=== PATIENT | male | born 1950 | race Caucasian/White ===

== ENCOUNTER 2018-09-23 09:00 | Outpatient (RCR) | payer MEDICARE, SELFPAY ==
--- NOTE | 2018-04-16 13:58 | PT.OIE ---
Current Diagnoses Pain in left hip (04/15/18) Provider Visit Care Team Role Provider Type Leticia Arias MD Attending Provider Non-Staff Family Provider Primary Care Provider Specialty: Medical Address: [address] [place] [address], [id number] Email: Physical Therapy Initial Evaluation PT-OP-A Visit Information Start: 04/15/18 13:17 Freq: Status: Active Protocol: Document 04/15/18 13:20 EA (Rec: 04/15/18 13:42 EA [id number]) Out-Patient Physical Therapy Visit Information Visit Information Visit Type Initial Evaluation Visit Start Time 08:15 Visit Stop Time 08:50 Total Visit Minutes 35 Visit Number 1 Evaluation Information Evaluation Date 04/15/18 PT-OP-B Current Condition Start: 04/15/18 13:17 Freq: Status: Active Protocol: Document 04/15/18 13:20 EA (Rec: 04/15/18 13:42 EA [id number]) Current Condition History of Current Condition Onset Date 5 years ago Current Complaints Left hip pain with stiffness History of Current Condition Present condition started 5 year ago which has been treated 1 year ago with good results but not fully recovered. Pt reports that he does not want to undergo surgery though he was diagnosed with hip OA few years ago; states c/c is difficulty with tying shoes in seated position and difficulty of getting up from the floor when kneeling as he feels joint stiffness always stopped him. Patient denies hip injury in the past or hip surgery. Patient went to his doctor weeks ago and was then referred to PT for further evaluation. Radiographs taken months ago which according to patient that the left hip joint has significant OA. Prior Treatments and Tests Formal PT year ago with same condition Chiropractor ongoing for back problem Future Testing and Treatments Planned None at this time. Treatment Goals Patient/Caregiver Goals 1. be able to bend and tie shoe laces and put the sucks 2. decrease left hip discomfort and stiffness Prior Functional Status Baseline Function- ADL's Independent Baseline Function- Mobility Independent Baseline Function- Recreation/Hobbies Fishing, crabbing, camping with mild difficulty Current Functional Impairments (Reported) Functional Limitations- ADL's Limitation with bending and left foot shoe donning Functional Limitations- Mobility/Gait Indep with no mobility support with moderate limp. Functional Limitations- Recreation/ Fishing, crabbing, camping Hobbies with mild difficulty Personal Factors Other Personal Factors That May Effect Chronicity of the condition Therapy/Recovery PT-OP-C Subjective Start: 04/15/18 13:17 Freq: Status: Active Protocol: Document 04/15/18 13:20 EA (Rec: 04/15/18 13:42 EA [id number]) OP-PT Subjective Patient Comments Patient Comments Patient reports difficulty of getting up from the floor and donning shoes due to left hip stiffness and pain. Patient Reported Progress Improving Patient Questionnaires Lower Extremity Functional Scale LEFS Score 40 LEFS Impairment 40 to 59% Impaired (Score 32- 47) PT-OP-F Manual Assessment Start: 04/15/18 13:17 Freq: Status: Active Protocol: Document 04/15/18 13:20 EA (Rec: 04/16/18 12:43 EA [id number]) Manual Assessments Soft Tissue Assessment Soft Tissue Mobility Assessment Hypomobile left hip joint Joint Mobility Assessment Joint Mobility Assessment LOM due to possible soft tissuue tightness on ant hip region PT-OP-G Mobility & Gait Start: 04/15/18 13:17 Freq: Status: Active Protocol: Document 04/15/18 13:20 EA (Rec: 04/15/18 13:42 EA [id number]) OP Gait Assessment Gait Deviations General Gait Pattern Antalgic Stair Climbing Evaluation Comments Stair Climbing Comments Decrease left foot stance time . PT-OP-J Posture/Palpation/Skin Start: 04/15/18 13:17 Freq: Status: Active Protocol: Document 04/15/18 13:20 EA (Rec: 04/15/18 13:42 EA [id number]) Palpation Assessment Location One Palpation Location Right ant hip Palpation Findings Soft Tissue Tightness PT-OP-K Range of Motion Start: 04/15/18 13:17 Freq: Status: Active Protocol: Document 04/15/18 13:20 EA (Rec: 04/15/18 13:42 EA [id number]) Hip Goniometric Range of Motion Hip Measured in Degrees Left Active Testing Position Supine Flexion w/Knee Flexed 80 Extension 5 Abduction 15 Internal Rotation 15 External Rotation 35 Right Active Testing Position Supine Flexion w/Knee Flexed 90 Extension 10 Abduction 25 Internal Rotation 25 External Rotation 40 PT-OP-L Special Tests Start: 04/15/18 13:17 Freq: Status: Active Protocol: Document 04/15/18 13:20 EA (Rec: 04/15/18 13:42 EA [id number]) Special Tests Hip Special Tests Piriformis Test Results - Scour Test Test Results NOT SENSITIVE Lisa's Test Test Results + PAKO Test Results + PT-OP-M Strength Start: 04/15/18 13:17 Freq: Status: Active Protocol: Document 04/15/18 13:20 EA (Rec: 04/15/18 13:42 EA [id number]) Hip Strength Hip Manual Muscle Testing Left Flexion (L2) 5 Normal Extension (S1) 5 Normal Abduction 4- Good- External Rotation 4+ Good+ Internal Rotation 4- Good- Right Flexion (L2) 5 Normal Extension (S1) 5 Normal Abduction 5 Normal Adduction 5 Normal External Rotation 4+ Good+ Internal Rotation 5 Normal PT-OP-Q Treatments Start: 04/15/18 13:17 Freq: Status: Active Protocol: Document 04/15/18 13:20 EA (Rec: 04/15/18 13:42 EA [id number]) Self-Care/Home Management Treatment Education Patient Education Body Mechanics Home Exercise Program Joint Protection Pain Management PT-OP-T Assessment and Plan Start: 04/15/18 13:17 Freq: Status: Active Protocol: Document 04/15/18 13:20 EA (Rec: 04/15/18 13:42 EA [id number]) Physical Therapy Assessment Rehab Potential Rehabilitation Potential Fair Evaluation Complexity Number of Personal Factors/Comorbidities 1-2 Number of Body Systems Impaired 1-2 Clinical Presentation at Evaluation Stable Impairments Impairments Functional Activities Functional Mobility Gait Pain ROM Soft Tissue Mobility Strength Goals Four Impairment Subjective pain complaint of 3 /10 PS Fdc Goal (LTG) Patient will reports left hip pain of 1/10 PS LTG Duration 4 wks Three Impairment LEFS score of 40/80 Side Laster Goal (LTG) Patient will have LEFS score of 65/80 LTG Duration 4 wks Two Impairment Min antalgic gait with increased left foot toe out Side Laster Goal (LTG) Patient will demontrate normal gait LTG Duration 4 wks. One Impairment Decreased Left HIP flexion ROM (0-80 deg) Side Laster Goal (LTG) Patient will increase Left Hip active flexion to 90 deg to be able to tie shoes in bent position LTG Duration 4 wks Assessment Summary Assessment Pleasant 67 y/o M patient who demonstrates left HIP LOM with minimal weakness due to tightness and pain. Special test reveals positive with joint condition such as OA which consistent with X-ray findings. Due to hip pain and tightness with LOM, patient functional ability is limited to some extent. Patient is a fair candidate for PT at this time considering the BW and previous rehab. Patient will benefit with skilled PT to focused mainly of increasing hip ROM and decreasing pain and discomfort. Physical Therapy Plan Frequency and Duration Frequency of Treatment 2x/Week Plan of Care Start Date 04/15/18 Plan of Care End Date 06/10/18 Therapeutic Interventions Therapeutic Interventions Aquatic Therapy Gait Training Home Exercise Program Joint Mobilizations Manual Therapy Patient/Caregiver Education Self-Care/Home Management Soft Tissue Mobilization Therapeutic Activities Therapeutic Exercises Modalities Cold Pack/Ice Massage Hot Packs Ultrasound Next Visit Focus/Plan Next Note Type Treatment Note Next Visit Plan 1. Warm-cardio 5-15 mins 2. Flexibility exercises 3. HEP
--- NOTE | 2018-04-16 13:59 | PT.OPPOC ---
Current Diagnoses Pain in left hip (04/15/18) Provider Visit Care Team Role Provider Type Leticia Arias MD Attending Provider Non-Staff Family Provider Primary Care Provider Specialty: Medical Address: [address] [place] [address], [phone] Email: Plan Of Care PT-OP-T Assessment and Plan Start: 04/15/18 13:17 Freq: Status: Active Protocol: Document 04/15/18 13:20 EA (Rec: 04/15/18 13:42 EA [id number]) Physical Therapy Assessment Rehab Potential Rehabilitation Potential Fair Evaluation Complexity Number of Personal Factors/Comorbidities 1-2 Number of Body Systems Impaired 1-2 Clinical Presentation at Evaluation Stable Impairments Impairments Functional Activities Functional Mobility Gait Pain ROM Soft Tissue Mobility Strength Goals Four Impairment Subjective pain complaint of 3 /10 PS Retirement Goal (LTG) Patient will reports left hip pain of 1/10 PS LTG Duration 4 wks Three Impairment LEFS score of 40/80 Retirement Goal (LTG) Patient will have LEFS score of 65/80 LTG Duration 4 wks Two Impairment Min antalgic gait with increased left foot toe out Retirement Goal (LTG) Patient will demonstrate normal gait LTG Duration 4 wks. One Impairment Decreased Left HIP flexion ROM (0-80 deg) Auto Parts Clerk Goal (LTG) Patient will increase Left Hip active flexion to 90 deg to be able to tie shoes in bent position LTG Duration 4 wks Assessment Summary Assessment Pleasant 67 y/o M patient who demonstrates left HIP LOM with minimal weakness due to tightness and pain. Special test reveals positive with joint condition such as OA which consistent with X-ray findings. Due to hip pain and tightness with LOM, patient functional ability is limited to some extent. Patient is a fair candidate for PT at this time considering the BW and previous rehab. Patient will benefit with skilled PT to focused mainly of increasing hip ROM and decreasing pain and discomfort. Physical Therapy Plan Frequency and Duration Frequency of Treatment 2x/Week Plan of Care Start Date 04/15/18 Plan of Care End Date 06/10/18 Therapeutic Interventions Therapeutic Interventions Aquatic Therapy Gait Training Home Exercise Program Joint Mobilizations Manual Therapy Patient/Caregiver Education Self-Care/Home Management Soft Tissue Mobilization Therapeutic Activities Therapeutic Exercises Modalities Cold Pack/Ice Massage Hot Packs Ultrasound Next Visit Focus/Plan Next Note Type Treatment Note Next Visit Plan 1. Warm-cardio 5-15 mins 2. Flexibility exercises 3. HEP Plan of Care Dates Plan of Care Start Date 04/15/18 Plan of Care End Date 06/10/18 Please Sign and Return: I have reviewed this Plan of Care and certify that the skilled therapy services above are required to meet the patient?s needs. Physician Signature Date Printed Name and Credentials Clinical Instructor Signature Printed Name and Credentials
--- NOTE | 2018-04-17 12:16 | PT.OTN ---
Current Diagnoses Pain in left hip (04/17/18) Physical Therapy Treatment Note PT-OP-A Visit Information Start: 04/15/18 13:17 Freq: Status: Active Protocol: Document 04/17/18 08:55 EA (Rec: 04/17/18 08:56 EA [id number]) Out-Patient Physical Therapy Visit Information Visit Information Visit Type Treatment Note Visit Start Time 07:30 Visit Stop Time 08:15 Total Visit Minutes 45 Visit Number 2 Number of SAAS ARCHITECT Visits 0 PT-OP-B Current Condition Start: 04/15/18 13:17 Freq: Status: Active Protocol: Document 04/15/18 13:20 EA (Rec: 04/15/18 13:42 EA [id number]) Current Condition History of Current Condition Onset Date 5 years ago Current Complaints Left hip pain with stiffness History of Current Condition Present condition started 5 year ago which has been treated 1 year ago with good results but not fully recovered. Pt reports that he does not want to undergo surgery though he was diagnosed with hip OA few years ago; states c/c is difficulty with tieng shoes in seated position and difficulty of getting up from the floor when kneeling as he feels joint stiffness always stopped him. Patient denies hip injury in the past or hip rsurgery. Patient went to his doctor weeks ago and was then referred to PT for further evaluation. Radiographs taken months ago which according to patient that the left hip joint has significant OA. Prior Treatments and Tests Formal PT year ago with same condition Chiropractor ongoing for back problem Future Testing and Treatments Planned None at this time. Treatment Goals Patient/Caregiver Goals 1. be able to bend and tie shoe laces and put the sucks 2. decrease left hip discomfort and stiffness Prior Functional Status Baseline Function- ADL's Independent Baseline Function- Mobility Independent Baseline Function- Recreation/Hobbies Fishing, crabbing, camping with mild difficulty Current Functional Impairments (Reported) Functional Limitations- ADL's Limitation with bending and left foot shoe donning Functional Limitations- Mobility/Gait Indep with no mobility support with moderate limp. Functional Limitations- Recreation/ Fishing, crabbing, camping Hobbies with mild difficulty Personal Factors Other Personal Factors That May Effect Chronicity of the condition Therapy/Recovery PT-OP-C Subjective Start: 04/15/18 13:17 Freq: Status: Active Protocol: Document 04/17/18 07:30 EA (Rec: 04/17/18 08:17 EA [id number]) OP-PT Subjective Patient Comments Patient Comments Patient reports hip anmd low back crepitus occurs mostly when doing his HEP. Patient Reported Progress Same PT-OP-F Manual Assessment Start: 04/15/18 13:17 Freq: Status: Active Protocol: Document 04/15/18 13:20 EA (Rec: 04/16/18 12:43 EA [id number]) Manual Assessments Soft Tissue Assessment Soft Tissue Mobility Assessment Hypomobile left hip joint Joint Mobility Assessment Joint Mobility Assessment LOM due to possible soft tissuue tightness on ant hip region PT-OP-G Mobility & Gait Start: 04/15/18 13:17 Freq: Status: Active Protocol: Document 04/15/18 13:20 EA (Rec: 04/15/18 13:42 EA [id number]) OP Gait Assessment Gait Deviations General Gait Pattern Antalgic Stair Climbing Evaluation Comments Stair Climbing Comments Decrease left foot stance time . PT-OP-J Posture/Palpation/Skin Start: 04/15/18 13:17 Freq: Status: Active Protocol: Document 04/15/18 13:20 EA (Rec: 04/15/18 13:42 EA [id number]) Palpation Assessment Location One Palpation Location Right ant hip Palpation Findings Soft Tissue Tightness PT-OP-K Range of Motion Start: 04/15/18 13:17 Freq: Status: Active Protocol: Document 04/15/18 13:20 EA (Rec: 04/15/18 13:42 EA [id number]) Hip Goniometric Range of Motion Hip Measured in Degrees Left Active Testing Position Supine Flexion w/Knee Flexed 80 Extension 5 Abduction 15 Internal Rotation 15 External Rotation 35 Right Active Testing Position Supine Flexion w/Knee Flexed 90 Extension 10 Abduction 25 Internal Rotation 25 External Rotation 40 PT-OP-L Special Tests Start: 04/15/18 13:17 Freq: Status: Active Protocol: Document 04/15/18 13:20 EA (Rec: 04/15/18 13:42 EA [id number]) Special Tests Hip Special Tests Piriformis Test Results - Scour Test Test Results NOT SENSITIVE Lisa's Test Test Results + PAKO Test Results + PT-OP-M Strength Start: 04/15/18 13:17 Freq: Status: Active Protocol: Document 04/15/18 13:20 EA (Rec: 04/15/18 13:42 EA [id number]) Hip Strength Hip Manual Muscle Testing Left Flexion (L2) 5 Normal Extension (S1) 5 Normal Abduction 4- Good- External Rotation 4+ Good+ Internal Rotation 4- Good- Right Flexion (L2) 5 Normal Extension (S1) 5 Normal Abduction 5 Normal Adduction 5 Normal External Rotation 4+ Good+ Internal Rotation 5 Normal PT-OP-Q Treatments Start: 04/15/18 13:17 Freq: Status: Active Protocol: Document 04/17/18 07:30 EA (Rec: 04/17/18 08:17 EA [id number]) Cardio Equipment Elliptical Duration (Minutes) 7 Resistance 1-6 Gym Equipment Shuttle Recovery Unilateral Squats Details full hip flexion range or as tolerated Resistance 75-100 # Shuttle Recovery Platform Stable Reps/Time x 15 x 2sets Therapeutic Exercises Supine Exercises 3 Supine Exercise Name hip abd/add AROM Side left Reps/Minutes x15 reps x 2 2 Supine Exercise Name figure of 4 stretch Side left Reps/Minutes x30sh x 2 1 Supine Exercise Name Hamstring stertch Side left Reps/Minutes x 30SH x 2 Standing Exercises 2 Standing Exercise Name SLS Side left Reps/Minutes x10 SH x 5 1 Standing Exercise Name Side step squat Side bilateral Equipment Used GTB Reps/Minutes x 2 lines Comments cues knee s not pass toes, not to use arm to pull up Other Exercises 1 Other Exercise Name Half knee ling stretch Side bilateral Comments Rails to hol and foam to knee Manual Therapy Treatment Joint Mobilizations 1 Joint Hip Direction post/inf Grade III Body Position Supine PT-OP-T Assessment and Plan Start: 04/15/18 13:17 Freq: Status: Active Protocol: Document 04/17/18 07:30 EA (Rec: 04/17/18 08:17 EA [id number]) Physical Therapy Assessment Assessment Summary Assessment Patient were instructed with HEP and showed good understanding. Patient tolerated treatment well. Physical Therapy Plan Next Visit Focus/Plan Next Note Type Treatment Note Next Visit Plan Cont with current plan.
--- NOTE | 2018-04-24 09:40 | PT.OTN ---
Current Diagnoses Pain in left hip (04/24/18) Physical Therapy Treatment Note PT-OP-A Visit Information Start: 04/15/18 13:17 Freq: Status: Active Protocol: Document 04/24/18 07:32 EA (Rec: 04/24/18 08:20 EA [id number]) Out-Patient Physical Therapy Visit Information Visit Information Visit Type Treatment Note Visit Start Time 07:30 Visit Stop Time 08:15 Total Visit Minutes 45 Visit Number 3 Number of ADVANCED DEVELOPER Visits 0 PT-OP-B Current Condition Start: 04/15/18 13:17 Freq: Status: Active Protocol: Document 04/15/18 13:20 EA (Rec: 04/15/18 13:42 EA [id number]) Current Condition History of Current Condition Onset Date 5 years ago Current Complaints Left hip pain with stiffness History of Current Condition Present condition started 5 year ago which has been treated 1 year ago with good results but not fully recovered. Pt reports that he does not want to undergo surgery though he was diagnosed with hip OA few years ago; states c/c is difficulty with tieng shoes in seated position and difficulty of getting up from the floor when kneeling as he feels joint stiffness always stopped him. Patient denies hip injury in the past or hip rsurgery. Patient went to his doctor weeks ago and was then referred to PT for further evaluation. Radiographs taken months ago which according to patient that the left hip joint has significant OA. Prior Treatments and Tests Formal PT year ago with same condition Chiropractor ongoing for back problem Future Testing and Treatments Planned None at this time. Treatment Goals Patient/Caregiver Goals 1. be able to bend and tie shoe laces and put the sucks 2. decrease left hip discomfort and stiffness Prior Functional Status Baseline Function- ADL's Independent Baseline Function- Mobility Independent Baseline Function- Recreation/Hobbies Fishing, crabbing, camping with mild difficulty Current Functional Impairments (Reported) Functional Limitations- ADL's Limitation with bending and left foot shoe donning Functional Limitations- Mobility/Gait Indep with no mobility support with moderate limp. Functional Limitations- Recreation/ Fishing, crabbing, camping Hobbies with mild difficulty Personal Factors Other Personal Factors That May Effect Chronicity of the condition Therapy/Recovery PT-OP-C Subjective Start: 04/15/18 13:17 Freq: Status: Active Protocol: Document 04/24/18 07:32 EA (Rec: 04/24/18 08:20 EA [id number]) OP-PT Subjective Patient Comments Patient Comments Patient reports compliant with recommended HEP; states he would be away next month for 2 weeks so he would like to learn more about gym exercises . PT-OP-F Manual Assessment Start: 04/15/18 13:17 Freq: Status: Active Protocol: Document 04/15/18 13:20 EA (Rec: 04/16/18 12:43 EA [id number]) Manual Assessments Soft Tissue Assessment Soft Tissue Mobility Assessment Hypomobile left hip joint Joint Mobility Assessment Joint Mobility Assessment LOM due to possible soft tissuue tightness on ant hip region PT-OP-G Mobility & Gait Start: 04/15/18 13:17 Freq: Status: Active Protocol: Document 04/15/18 13:20 EA (Rec: 04/15/18 13:42 EA [id number]) OP Gait Assessment Gait Deviations General Gait Pattern Antalgic Stair Climbing Evaluation Comments Stair Climbing Comments Decrease left foot stance time . PT-OP-J Posture/Palpation/Skin Start: 04/15/18 13:17 Freq: Status: Active Protocol: Document 04/15/18 13:20 EA (Rec: 04/15/18 13:42 EA [id number]) Palpation Assessment Location One Palpation Location Right ant hip Palpation Findings Soft Tissue Tightness PT-OP-K Range of Motion Start: 04/15/18 13:17 Freq: Status: Active Protocol: Document 04/15/18 13:20 EA (Rec: 04/15/18 13:42 EA [id number]) Hip Goniometric Range of Motion Hip Measured in Degrees Left Active Testing Position Supine Flexion w/Knee Flexed 80 Extension 5 Abduction 15 Internal Rotation 15 External Rotation 35 Right Active Testing Position Supine Flexion w/Knee Flexed 90 Extension 10 Abduction 25 Internal Rotation 25 External Rotation 40 PT-OP-L Special Tests Start: 04/15/18 13:17 Freq: Status: Active Protocol: Document 04/15/18 13:20 EA (Rec: 04/15/18 13:42 EA [id number]) Special Tests Hip Special Tests Piriformis Test Results - Scour Test Test Results NOT SENSITIVE Lisa's Test Test Results + PAKO Test Results + PT-OP-M Strength Start: 04/15/18 13:17 Freq: Status: Active Protocol: Document 04/15/18 13:20 EA (Rec: 04/15/18 13:42 EA [id number]) Hip Strength Hip Manual Muscle Testing Left Flexion (L2) 5 Normal Extension (S1) 5 Normal Abduction 4- Good- External Rotation 4+ Good+ Internal Rotation 4- Good- Right Flexion (L2) 5 Normal Extension (S1) 5 Normal Abduction 5 Normal Adduction 5 Normal External Rotation 4+ Good+ Internal Rotation 5 Normal PT-OP-Q Treatments Start: 04/15/18 13:17 Freq: Status: Active Protocol: Document 04/24/18 07:32 EA (Rec: 04/24/18 08:20 EA [id number]) Cardio Equipment Elliptical Duration (Minutes) 7 Resistance 1-6 Gym Equipment Cable Column (Body Solid) Leg Extension Details 7 plates Reps/Time x15 reps Shuttle Recovery Unilateral Squats Details full hip flexion range or as tolerated Resistance 100 -150# Shuttle Recovery Platform Stable Reps/Time x 15 x 2sets Therapeutic Exercises Supine Exercises 4 Supine Exercise Name Bridge with T-ball Reps/Minutes x 10 reps x 2 SH up 3 Supine Exercise Name hip abd/add AROM Side left Reps/Minutes x15 reps x 2 2 Supine Exercise Name figure of 4 stretch Side left Reps/Minutes x30sh x 2 1 Supine Exercise Name Hamstring stertch Side left Reps/Minutes x 30SH x 2 Standing Exercises 2 Standing Exercise Name SLS Side left Reps/Minutes x10 SH x 5 1 Standing Exercise Name Side step squat Side bilateral Equipment Used GTB Reps/Minutes x 2 lines Comments cues knee s not pass toes, not to use arm to pull up Other Exercises 1 Other Exercise Name Half knee ling stretch Side bilateral Comments Rails to hol and foam to knee Manual Therapy Treatment Joint Mobilizations 1 Joint Hip Direction post/inf Grade III Body Position Supine PT-OP-T Assessment and Plan Start: 04/15/18 13:17 Freq: Status: Active Protocol: Document 04/24/18 07:32 EA (Rec: 04/24/18 08:20 EA [id number]) Physical Therapy Assessment Assessment Summary Assessment Tolerated treatment well. Physical Therapy Plan Next Visit Focus/Plan Next Note Type Treatment Note Next Visit Plan Cont with current plan
--- NOTE | 2018-04-28 12:14 | PT.OTN ---
Current Diagnoses Pain in left hip (04/28/18) Physical Therapy Treatment Note PT-OP-A Visit Information Start: 04/15/18 13:17 Freq: Status: Active Protocol: Document 04/28/18 09:01 EA (Rec: 04/28/18 09:51 EA [id number]) Out-Patient Physical Therapy Visit Information Visit Information Visit Type Treatment Note Visit Start Time 09:00 Visit Stop Time 09:45 Total Visit Minutes 45 Visit Number 4 Number of MEDICAL EDUCATION SPECIALIST Visits 0 PT-OP-B Current Condition Start: 04/15/18 13:17 Freq: Status: Active Protocol: Document 04/15/18 13:20 EA (Rec: 04/15/18 13:42 EA [id number]) Current Condition History of Current Condition Onset Date 5 years ago Current Complaints Left hip pain with stiffness History of Current Condition Present condition started 5 year ago which has been treated 1 year ago with good results but not fully recovered. Pt reports that he does not want to undergo surgery though he was diagnosed with hip OA few years ago; states c/c is difficulty with tieng shoes in seated position and difficulty of getting up from the floor when kneeling as he feels joint stiffness always stopped him. Patient denies hip injury in the past or hip rsurgery. Patient went to his doctor weeks ago and was then referred to PT for further evaluation. Radiographs taken months ago which according to patient that the left hip joint has significant OA. Prior Treatments and Tests Formal PT year ago with same condition Chiropractor ongoing for back problem Future Testing and Treatments Planned None at this time. Treatment Goals Patient/Caregiver Goals 1. be able to bend and tie shoe laces and put the sucks 2. decrease left hip discomfort and stiffness Prior Functional Status Baseline Function- ADL's Independent Baseline Function- Mobility Independent Baseline Function- Recreation/Hobbies Fishing, crabbing, camping with mild difficulty Current Functional Impairments (Reported) Functional Limitations- ADL's Limitation with bending and left foot shoe donning Functional Limitations- Mobility/Gait Indep with no mobility support with moderate limp. Functional Limitations- Recreation/ Fishing, crabbing, camping Hobbies with mild difficulty Personal Factors Other Personal Factors That May Effect Chronicity of the condition Therapy/Recovery PT-OP-C Subjective Start: 04/15/18 13:17 Freq: Status: Active Protocol: Document 04/24/18 07:32 EA (Rec: 04/24/18 08:20 EA [id number]) OP-PT Subjective Patient Comments Patient Comments Patient reports compliant with recommended HEP; states he would be away next month for 2 weeks so he would like to learn more about gym exercises . PT-OP-F Manual Assessment Start: 04/15/18 13:17 Freq: Status: Active Protocol: Document 04/15/18 13:20 EA (Rec: 04/16/18 12:43 EA [id number]) Manual Assessments Soft Tissue Assessment Soft Tissue Mobility Assessment Hypomobile left hip joint Joint Mobility Assessment Joint Mobility Assessment LOM due to possible soft tissuue tightness on ant hip region PT-OP-G Mobility & Gait Start: 04/15/18 13:17 Freq: Status: Active Protocol: Document 04/15/18 13:20 EA (Rec: 04/15/18 13:42 EA [id number]) OP Gait Assessment Gait Deviations General Gait Pattern Antalgic Stair Climbing Evaluation Comments Stair Climbing Comments Decrease left foot stance time . PT-OP-J Posture/Palpation/Skin Start: 04/15/18 13:17 Freq: Status: Active Protocol: Document 04/15/18 13:20 EA (Rec: 04/15/18 13:42 EA [id number]) Palpation Assessment Location One Palpation Location Right ant hip Palpation Findings Soft Tissue Tightness PT-OP-K Range of Motion Start: 04/15/18 13:17 Freq: Status: Active Protocol: Document 04/15/18 13:20 EA (Rec: 04/15/18 13:42 EA [id number]) Hip Goniometric Range of Motion Hip Measured in Degrees Left Active Testing Position Supine Flexion w/Knee Flexed 80 Extension 5 Abduction 15 Internal Rotation 15 External Rotation 35 Right Active Testing Position Supine Flexion w/Knee Flexed 90 Extension 10 Abduction 25 Internal Rotation 25 External Rotation 40 PT-OP-L Special Tests Start: 04/15/18 13:17 Freq: Status: Active Protocol: Document 04/15/18 13:20 EA (Rec: 04/15/18 13:42 EA [id number]) Special Tests Hip Special Tests Piriformis Test Results - Scour Test Test Results NOT SENSITIVE Lisa's Test Test Results + PAKO Test Results + PT-OP-M Strength Start: 04/15/18 13:17 Freq: Status: Active Protocol: Document 04/15/18 13:20 EA (Rec: 04/15/18 13:42 EA [id number]) Hip Strength Hip Manual Muscle Testing Left Flexion (L2) 5 Normal Extension (S1) 5 Normal Abduction 4- Good- External Rotation 4+ Good+ Internal Rotation 4- Good- Right Flexion (L2) 5 Normal Extension (S1) 5 Normal Abduction 5 Normal Adduction 5 Normal External Rotation 4+ Good+ Internal Rotation 5 Normal PT-OP-Q Treatments Start: 04/15/18 13:17 Freq: Status: Active Protocol: Document 04/28/18 09:01 EA (Rec: 04/28/18 09:51 EA [id number]) Cardio Equipment Elliptical Duration (Minutes) 7 Resistance 1-6 Gym Equipment Cable Column (Body Solid) Leg Extension Details 7 plates Reps/Time x15 reps Therapeutic Exercises Supine Exercises 4 Supine Exercise Name Bridge with T-ball Reps/Minutes x 10 reps x 2 SH up 3 Supine Exercise Name hip abd/add AROM Side left Reps/Minutes x15 reps x 2 2 Supine Exercise Name figure of 4 stretch Side left Reps/Minutes x30sh x 2 1 Supine Exercise Name Hamstring/ hip rotators, IT band, hip flexorsstertch Side left Reps/Minutes x 30SH x 2 Standing Exercises 3 Standing Exercise Name Steady lunge with hand support Side bilateral Reps/Minutes x 15 reps 2 Standing Exercise Name SLS Side left Reps/Minutes x10 SH x 5 1 Standing Exercise Name Side step squat Side bilateral Equipment Used GTB Reps/Minutes x 2 lines Comments cues knee s not pass toes, not to use arm to pull up Other Exercises 1 Other Exercise Name Half knee ling stretch Side bilateral Comments Rails to hol and foam to knee Manual Therapy Treatment Joint Mobilizations 1 Joint Hip Direction post/inf Grade III Body Position Supine PT-OP-T Assessment and Plan Start: 04/15/18 13:17 Freq: Status: Active Protocol: Document 04/28/18 09:01 EA (Rec: 04/28/18 09:51 EA [id number]) Physical Therapy Assessment Assessment Summary Assessment Tolerated treatment well. Physical Therapy Plan Next Visit Focus/Plan Next Visit Plan Progress as tolerated.
--- NOTE | 2018-05-01 09:47 | PT.OTN ---
Current Diagnoses Pain in left hip (05/01/18) Physical Therapy Treatment Note PT-OP-A Visit Information Start: 04/15/18 13:17 Freq: Status: Active Protocol: Document 05/01/18 08:20 EA (Rec: 05/01/18 09:02 EA [id number]) Out-Patient Physical Therapy Visit Information Visit Information Visit Type Treatment Note Visit Start Time 08:15 Visit Stop Time 09:00 Total Visit Minutes 45 Visit Number 5 Number of AIRCRAFT ORDNANCE TECHNICIAN Visits 0 PT-OP-B Current Condition Start: 04/15/18 13:17 Freq: Status: Active Protocol: Document 04/15/18 13:20 EA (Rec: 04/15/18 13:42 EA [id number]) Current Condition History of Current Condition Onset Date 5 years ago Current Complaints Left hip pain with stiffness History of Current Condition Present condition started 5 year ago which has been treated 1 year ago with good results but not fully recovered. Pt reports that he does not want to undergo surgery though he was diagnosed with hip OA few years ago; states c/c is difficulty with tieng shoes in seated position and difficulty of getting up from the floor when kneeling as he feels joint stiffness always stopped him. Patient denies hip injury in the past or hip rsurgery. Patient went to his doctor weeks ago and was then referred to PT for further evaluation. Radiographs taken months ago which according to patient that the left hip joint has significant OA. Prior Treatments and Tests Formal PT year ago with same condition Chiropractor ongoing for back problem Future Testing and Treatments Planned None at this time. Treatment Goals Patient/Caregiver Goals 1. be able to bend and tie shoe laces and put the sucks 2. decrease left hip discomfort and stiffness Prior Functional Status Baseline Function- ADL's Independent Baseline Function- Mobility Independent Baseline Function- Recreation/Hobbies Fishing, crabbing, camping with mild difficulty Current Functional Impairments (Reported) Functional Limitations- ADL's Limitation with bending and left foot shoe donning Functional Limitations- Mobility/Gait Indep with no mobility support with moderate limp. Functional Limitations- Recreation/ Fishing, crabbing, camping Hobbies with mild difficulty Personal Factors Other Personal Factors That May Effect Chronicity of the condition Therapy/Recovery PT-OP-C Subjective Start: 04/15/18 13:17 Freq: Status: Active Protocol: Document 05/01/18 09:06 EA (Rec: 05/01/18 09:07 EA [id number]) OP-PT Subjective Patient Comments Patient Comments Pt reports quite sore after last session but much feeling better at this time. Patient Reported Progress Improving PT-OP-F Manual Assessment Start: 04/15/18 13:17 Freq: Status: Active Protocol: Document 04/15/18 13:20 EA (Rec: 04/16/18 12:43 EA [id number]) Manual Assessments Soft Tissue Assessment Soft Tissue Mobility Assessment Hypomobile left hip joint Joint Mobility Assessment Joint Mobility Assessment LOM due to possible soft tissuue tightness on ant hip region PT-OP-G Mobility & Gait Start: 04/15/18 13:17 Freq: Status: Active Protocol: Document 04/15/18 13:20 EA (Rec: 04/15/18 13:42 EA [id number]) OP Gait Assessment Gait Deviations General Gait Pattern Antalgic Stair Climbing Evaluation Comments Stair Climbing Comments Decrease left foot stance time . PT-OP-J Posture/Palpation/Skin Start: 04/15/18 13:17 Freq: Status: Active Protocol: Document 04/15/18 13:20 EA (Rec: 04/15/18 13:42 EA [id number]) Palpation Assessment Location One Palpation Location Right ant hip Palpation Findings Soft Tissue Tightness PT-OP-K Range of Motion Start: 04/15/18 13:17 Freq: Status: Active Protocol: Document 04/15/18 13:20 EA (Rec: 04/15/18 13:42 EA [id number]) Hip Goniometric Range of Motion Hip Measured in Degrees Left Active Testing Position Supine Flexion w/Knee Flexed 80 Extension 5 Abduction 15 Internal Rotation 15 External Rotation 35 Right Active Testing Position Supine Flexion w/Knee Flexed 90 Extension 10 Abduction 25 Internal Rotation 25 External Rotation 40 PT-OP-L Special Tests Start: 04/15/18 13:17 Freq: Status: Active Protocol: Document 04/15/18 13:20 EA (Rec: 04/15/18 13:42 EA [id number]) Special Tests Hip Special Tests Piriformis Test Results - Scour Test Test Results NOT SENSITIVE Lisa's Test Test Results + PAKO Test Results + PT-OP-M Strength Start: 04/15/18 13:17 Freq: Status: Active Protocol: Document 04/15/18 13:20 EA (Rec: 04/15/18 13:42 EA [id number]) Hip Strength Hip Manual Muscle Testing Left Flexion (L2) 5 Normal Extension (S1) 5 Normal Abduction 4- Good- External Rotation 4+ Good+ Internal Rotation 4- Good- Right Flexion (L2) 5 Normal Extension (S1) 5 Normal Abduction 5 Normal Adduction 5 Normal External Rotation 4+ Good+ Internal Rotation 5 Normal PT-OP-Q Treatments Start: 04/15/18 13:17 Freq: Status: Active Protocol: Document 05/01/18 08:20 EA (Rec: 05/01/18 09:02 EA [id number]) Cardio Equipment Elliptical Duration (Minutes) 7 Resistance 1-6 Gym Equipment Cable Column (Body Solid) Leg Extension Details 3-10lates Reps/Time x15 reps Shuttle Recovery Bilateral Squats Details 90 deg Resistance 6 cords Shuttle Recovery Platform Stable Reps/Time x 15 reps x 2 Unilateral Squats Details full hip flexion range or as tolerated Resistance 100 -150# Shuttle Recovery Platform Stable Reps/Time x 15 x 2sets Therapeutic Exercises Supine Exercises 4 Supine Exercise Name Bridge with T-ball Reps/Minutes x 10 reps x 2 SH up 3 Supine Exercise Name hip abd/add AROM Side left Reps/Minutes x15 reps x 2 2 Supine Exercise Name figure of 4 stretch Side left Reps/Minutes x30sh x 2 Standing Exercises 3 Standing Exercise Name Steady lunge with hand support Side bilateral Reps/Minutes x 15 reps 2 Standing Exercise Name SLS Side left Reps/Minutes x10 SH x 5 1 Standing Exercise Name Side step squat Side bilateral Equipment Used GTB Reps/Minutes x 2 lines Comments cues knee s not pass toes, not to use arm to pull up Manual Therapy Treatment Joint Mobilizations 1 Joint Hip Direction post/inf Grade III Body Position Supine PT-OP-T Assessment and Plan Start: 04/15/18 13:17 Freq: Status: Active Protocol: Document 05/01/18 08:20 EA (Rec: 05/01/18 09:02 EA [id number]) Physical Therapy Assessment Assessment Summary Assessment Patient had improved range with functional foot reaching in standing 8 inches to the floor. Patient is progressing well. Physical Therapy Plan Next Visit Focus/Plan Next Visit Plan Advance as tolerated.
--- NOTE | 2018-05-07 14:24 | PT.OTN ---
Current Diagnoses Pain in left hip (05/07/18) Physical Therapy Treatment Note PT-OP-A Visit Information Start: 04/15/18 13:17 Freq: Status: Active Protocol: Document 05/07/18 08:55 EA (Rec: 05/07/18 09:45 EA [id number]) Out-Patient Physical Therapy Visit Information Visit Information Visit Type Treatment Note Visit Start Time 09:00 Visit Stop Time 09:45 Total Visit Minutes 45 Visit Number 6 PT-OP-B Current Condition Start: 04/15/18 13:17 Freq: Status: Active Protocol: Document 04/15/18 13:20 EA (Rec: 04/15/18 13:42 EA [id number]) Current Condition History of Current Condition Onset Date 5 years ago Current Complaints Left hip pain with stiffness History of Current Condition Present condition started 5 year ago which has been treated 1 year ago with good results but not fully recovered. Pt reports that he does not want to undergo surgery though he was diagnosed with hip OA few years ago; states c/c is difficulty with tieng shoes in seated position and difficulty of getting up from the floor when kneeling as he feels joint stiffness always stopped him. Patient denies hip injury in the past or hip rsurgery. Patient went to his doctor weeks ago and was then referred to PT for further evaluation. Radiographs taken months ago which according to patient that the left hip joint has significant OA. Prior Treatments and Tests Formal PT year ago with same condition Chiropractor ongoing for back problem Future Testing and Treatments Planned None at this time. Treatment Goals Patient/Caregiver Goals 1. be able to bend and tie shoe laces and put the sucks 2. decrease left hip discomfort and stiffness Prior Functional Status Baseline Function- ADL's Independent Baseline Function- Mobility Independent Baseline Function- Recreation/Hobbies Fishing, crabbing, camping with mild difficulty Current Functional Impairments (Reported) Functional Limitations- ADL's Limitation with bending and left foot shoe donning Functional Limitations- Mobility/Gait Indep with no mobility support with moderate limp. Functional Limitations- Recreation/ Fishing, crabbing, camping Hobbies with mild difficulty Personal Factors Other Personal Factors That May Effect Chronicity of the condition Therapy/Recovery PT-OP-C Subjective Start: 04/15/18 13:17 Freq: Status: Active Protocol: Document 05/07/18 08:55 EA (Rec: 05/07/18 09:45 EA [id number]) OP-PT Subjective Patient Comments Patient Comments PT reports feels hip ROM is improving. PT-OP-F Manual Assessment Start: 04/15/18 13:17 Freq: Status: Active Protocol: Document 04/15/18 13:20 EA (Rec: 04/16/18 12:43 EA [id number]) Manual Assessments Soft Tissue Assessment Soft Tissue Mobility Assessment Hypomobile left hip joint Joint Mobility Assessment Joint Mobility Assessment LOM due to possible soft tissuue tightness on ant hip region PT-OP-G Mobility & Gait Start: 04/15/18 13:17 Freq: Status: Active Protocol: Document 04/15/18 13:20 EA (Rec: 04/15/18 13:42 EA [id number]) OP Gait Assessment Gait Deviations General Gait Pattern Antalgic Stair Climbing Evaluation Comments Stair Climbing Comments Decrease left foot stance time . PT-OP-J Posture/Palpation/Skin Start: 04/15/18 13:17 Freq: Status: Active Protocol: Document 04/15/18 13:20 EA (Rec: 04/15/18 13:42 EA [id number]) Palpation Assessment Location One Palpation Location Right ant hip Palpation Findings Soft Tissue Tightness PT-OP-K Range of Motion Start: 04/15/18 13:17 Freq: Status: Active Protocol: Document 04/15/18 13:20 EA (Rec: 04/15/18 13:42 EA [id number]) Hip Goniometric Range of Motion Hip Measured in Degrees Left Active Testing Position Supine Flexion w/Knee Flexed 80 Extension 5 Abduction 15 Internal Rotation 15 External Rotation 35 Right Active Testing Position Supine Flexion w/Knee Flexed 90 Extension 10 Abduction 25 Internal Rotation 25 External Rotation 40 PT-OP-L Special Tests Start: 04/15/18 13:17 Freq: Status: Active Protocol: Document 04/15/18 13:20 EA (Rec: 04/15/18 13:42 EA [id number]) Special Tests Hip Special Tests Piriformis Test Results - Scour Test Test Results NOT SENSITIVE Lisa's Test Test Results + PAKO Test Results + PT-OP-M Strength Start: 04/15/18 13:17 Freq: Status: Active Protocol: Document 04/15/18 13:20 EA (Rec: 04/15/18 13:42 EA [id number]) Hip Strength Hip Manual Muscle Testing Left Flexion (L2) 5 Normal Extension (S1) 5 Normal Abduction 4- Good- External Rotation 4+ Good+ Internal Rotation 4- Good- Right Flexion (L2) 5 Normal Extension (S1) 5 Normal Abduction 5 Normal Adduction 5 Normal External Rotation 4+ Good+ Internal Rotation 5 Normal PT-OP-Q Treatments Start: 04/15/18 13:17 Freq: Status: Active Protocol: Document 05/07/18 08:55 EA (Rec: 05/07/18 09:45 EA [id number]) Cardio Equipment Elliptical Duration (Minutes) 7 Resistance 1-6 Gym Equipment Cable Column (Body Solid) Leg Extension Details 3-10lates Reps/Time x15 reps Shuttle Recovery Bilateral Squats Details 90 deg Resistance 6 cords Shuttle Recovery Platform Stable Reps/Time x 15 reps x 2 Unilateral Squats Details full hip flexion range or as tolerated Resistance 100 -150# Shuttle Recovery Platform Stable Reps/Time x 15 x 2sets Therapeutic Exercises Supine Exercises 5 Supine Exercise Name edge table rectus femoris stretch 4 Supine Exercise Name Bridge with T-ball Reps/Minutes x 10 reps x 2 SH up 3 Supine Exercise Name hip abd/add AROM Side left Reps/Minutes x15 reps x 2 1 Supine Exercise Name Hamstring/ hip rotators, IT band, hip flexorsstertch Side left Reps/Minutes x 30SH x 2 Standing Exercises 3 Standing Exercise Name Steady lunge with hand support Side bilateral Reps/Minutes x 15 reps 2 Standing Exercise Name SLS Side left Reps/Minutes x10 SH x 5 1 Standing Exercise Name Side step squat Side bilateral Equipment Used GTB Reps/Minutes x 2 lines Comments cues knee s not pass toes, not to use arm to pull up Other Exercises 2 Other Exercise Name Steps hamstring and calf stretch Reps/Minutes x 15SH x 2 reps 1 Other Exercise Name Half knee ling stretch Side bilateral Comments Rails to hol and foam to knee Manual Therapy Treatment Joint Mobilizations 1 Joint Hip Direction post/inf Grade III Body Position Supine PT-OP-T Assessment and Plan Start: 04/15/18 13:17 Freq: Status: Active Protocol: Document 05/07/18 08:55 EA (Rec: 05/07/18 09:45 EA [id number]) Physical Therapy Assessment Assessment Summary Assessment Patient has improved range today. Advised to cont. HEP with focus in hams, Erotators, and low back extensors muscles. Physical Therapy Plan Next Visit Focus/Plan Next Visit Plan cont with current plan.
--- NOTE | 2018-05-12 13:16 | PT.OTN ---
Current Diagnoses Pain in left hip (05/12/18) Physical Therapy Treatment Note PT-OP-A Visit Information Start: 04/15/18 13:17 Freq: Status: Active Protocol: Document 05/12/18 09:49 EA (Rec: 05/12/18 10:36 EA [id number]) Out-Patient Physical Therapy Visit Information Visit Information Visit Type Treatment Note Visit Start Time 09:45 Visit Stop Time 10:30 Total Visit Minutes 45 Visit Number 7 PT-OP-B Current Condition Start: 04/15/18 13:17 Freq: Status: Active Protocol: Document 04/15/18 13:20 EA (Rec: 04/15/18 13:42 EA [id number]) Current Condition History of Current Condition Onset Date 5 years ago Current Complaints Left hip pain with stiffness History of Current Condition Present condition started 5 year ago which has been treated 1 year ago with good results but not fully recovered. Pt reports that he does not want to undergo surgery though he was diagnosed with hip OA few years ago; states c/c is difficulty with tieng shoes in seated position and difficulty of getting up from the floor when kneeling as he feels joint stiffness always stopped him. Patient denies hip injury in the past or hip rsurgery. Patient went to his doctor weeks ago and was then referred to PT for further evaluation. Radiographs taken months ago which according to patient that the left hip joint has significant OA. Prior Treatments and Tests Formal PT year ago with same condition Chiropractor ongoing for back problem Future Testing and Treatments Planned None at this time. Treatment Goals Patient/Caregiver Goals 1. be able to bend and tie shoe laces and put the sucks 2. decrease left hip discomfort and stiffness Prior Functional Status Baseline Function- ADL's Independent Baseline Function- Mobility Independent Baseline Function- Recreation/Hobbies Fishing, crabbing, camping with mild difficulty Current Functional Impairments (Reported) Functional Limitations- ADL's Limitation with bending and left foot shoe donning Functional Limitations- Mobility/Gait Indep with no mobility support with moderate limp. Functional Limitations- Recreation/ Fishing, crabbing, camping Hobbies with mild difficulty Personal Factors Other Personal Factors That May Effect Chronicity of the condition Therapy/Recovery PT-OP-C Subjective Start: 04/15/18 13:17 Freq: Status: Active Protocol: Document 05/12/18 09:49 EA (Rec: 05/12/18 10:36 EA [id number]) OP-PT Subjective Patient Comments Patient Comments Pt reports compliant with HEP; states hua is less except when standing up from the lunges position. Patient Reported Progress Improving PT-OP-F Manual Assessment Start: 04/15/18 13:17 Freq: Status: Active Protocol: Document 04/15/18 13:20 EA (Rec: 04/16/18 12:43 EA [id number]) Manual Assessments Soft Tissue Assessment Soft Tissue Mobility Assessment Hypomobile left hip joint Joint Mobility Assessment Joint Mobility Assessment LOM due to possible soft tissuue tightness on ant hip region PT-OP-G Mobility & Gait Start: 04/15/18 13:17 Freq: Status: Active Protocol: Document 04/15/18 13:20 EA (Rec: 04/15/18 13:42 EA [id number]) OP Gait Assessment Gait Deviations General Gait Pattern Antalgic Stair Climbing Evaluation Comments Stair Climbing Comments Decrease left foot stance time . PT-OP-J Posture/Palpation/Skin Start: 04/15/18 13:17 Freq: Status: Active Protocol: Document 04/15/18 13:20 EA (Rec: 04/15/18 13:42 EA [id number]) Palpation Assessment Location One Palpation Location Right ant hip Palpation Findings Soft Tissue Tightness PT-OP-K Range of Motion Start: 04/15/18 13:17 Freq: Status: Active Protocol: Document 04/15/18 13:20 EA (Rec: 04/15/18 13:42 EA [id number]) Hip Goniometric Range of Motion Hip Measured in Degrees Left Active Testing Position Supine Flexion w/Knee Flexed 80 Extension 5 Abduction 15 Internal Rotation 15 External Rotation 35 Right Active Testing Position Supine Flexion w/Knee Flexed 90 Extension 10 Abduction 25 Internal Rotation 25 External Rotation 40 PT-OP-L Special Tests Start: 04/15/18 13:17 Freq: Status: Active Protocol: Document 04/15/18 13:20 EA (Rec: 04/15/18 13:42 EA [id number]) Special Tests Hip Special Tests Piriformis Test Results - Scour Test Test Results NOT SENSITIVE Lisa's Test Test Results + PAKO Test Results + PT-OP-M Strength Start: 04/15/18 13:17 Freq: Status: Active Protocol: Document 04/15/18 13:20 EA (Rec: 04/15/18 13:42 EA [id number]) Hip Strength Hip Manual Muscle Testing Left Flexion (L2) 5 Normal Extension (S1) 5 Normal Abduction 4- Good- External Rotation 4+ Good+ Internal Rotation 4- Good- Right Flexion (L2) 5 Normal Extension (S1) 5 Normal Abduction 5 Normal Adduction 5 Normal External Rotation 4+ Good+ Internal Rotation 5 Normal PT-OP-Q Treatments Start: 04/15/18 13:17 Freq: Status: Active Protocol: Document 05/12/18 09:49 EA (Rec: 05/12/18 10:36 EA [id number]) Cardio Equipment Recumbent Stepper (Sci-Fit) Duration (Minutes) 7 Resistance 4 Gym Equipment Shuttle Recovery Unilateral Squats Details full hip flexion range or as tolerated Resistance 100 -150# Shuttle Recovery Platform Stable Reps/Time x 15 x 4sets Therapeutic Exercises Supine Exercises 5 Supine Exercise Name edge table rectus femoris stretch 4 Supine Exercise Name Bridge with T-ball Reps/Minutes x 10 reps x 2 SH up 3 Supine Exercise Name hip abd/add AROM Side left Reps/Minutes x15 reps x 2 2 Supine Exercise Name figure of 4 stretch Side left Reps/Minutes x30sh x 2 1 Supine Exercise Name Hamstring/ hip rotators, IT band, hip flexorsstertch Side left Reps/Minutes x 30SH x 2 Sitting Exercises 1 Sitting Exercise Name low back fwd bending stretch. Reps/Minutes x 15sh x 3 reps Standing Exercises 3 Standing Exercise Name Steady lunge with hand support Side bilateral Reps/Minutes x 15 reps 1 Standing Exercise Name Side step squat Side bilateral Equipment Used GTB Reps/Minutes x 2 lines Comments cues knee s not pass toes, not to use arm to pull up Other Exercises 2 Other Exercise Name Steps hamstring and calf stretch Reps/Minutes x 15SH x 2 reps 1 Other Exercise Name Half knee ling stretch Side bilateral Comments Rails to hol and foam to knee Manual Therapy Treatment Joint Mobilizations 1 Joint Hip Direction post/inf Grade III Body Position Supine PT-OP-T Assessment and Plan Start: 04/15/18 13:17 Freq: Status: Active Protocol: Document 05/12/18 09:49 EA (Rec: 05/12/18 10:36 EA [id number]) Physical Therapy Assessment Assessment Summary Assessment Pt tolerated treatment well; improve lumbar flexion range. patient is progressing well. Physical Therapy Plan Next Visit Focus/Plan Next Visit Plan Hip extension.
--- NOTE | 2018-05-14 15:24 | PT.OTN ---
Current Diagnoses Pain in left hip (05/14/18) Physical Therapy Treatment Note PT-OP-A Visit Information Start: 04/15/18 13:17 Freq: Status: Active Protocol: Document 05/14/18 08:56 EA (Rec: 05/14/18 09:50 EA [id number]) Out-Patient Physical Therapy Visit Information Visit Information Visit Type Treatment Note Visit Start Time 09:00 Visit Stop Time 09:45 Total Visit Minutes 45 Visit Number 8 PT-OP-B Current Condition Start: 04/15/18 13:17 Freq: Status: Active Protocol: Document 04/15/18 13:20 EA (Rec: 04/15/18 13:42 EA [id number]) Current Condition History of Current Condition Onset Date 5 years ago Current Complaints Left hip pain with stiffness History of Current Condition Present condition started 5 year ago which has been treated 1 year ago with good results but not fully recovered. Pt reports that he does not want to undergo surgery though he was diagnosed with hip OA few years ago; states c/c is difficulty with tieng shoes in seated position and difficulty of getting up from the floor when kneeling as he feels joint stiffness always stopped him. Patient denies hip injury in the past or hip rsurgery. Patient went to his doctor weeks ago and was then referred to PT for further evaluation. Radiographs taken months ago which according to patient that the left hip joint has significant OA. Prior Treatments and Tests Formal PT year ago with same condition Chiropractor ongoing for back problem Future Testing and Treatments Planned None at this time. Treatment Goals Patient/Caregiver Goals 1. be able to bend and tie shoe laces and put the sucks 2. decrease left hip discomfort and stiffness Prior Functional Status Baseline Function- ADL's Independent Baseline Function- Mobility Independent Baseline Function- Recreation/Hobbies Fishing, crabbing, camping with mild difficulty Current Functional Impairments (Reported) Functional Limitations- ADL's Limitation with bending and left foot shoe donning Functional Limitations- Mobility/Gait Indep with no mobility support with moderate limp. Functional Limitations- Recreation/ Fishing, crabbing, camping Hobbies with mild difficulty Personal Factors Other Personal Factors That May Effect Chronicity of the condition Therapy/Recovery PT-OP-C Subjective Start: 04/15/18 13:17 Freq: Status: Active Protocol: Document 05/14/18 08:56 EA (Rec: 05/14/18 09:50 EA [id number]) OP-PT Subjective Patient Comments Patient Comments Pt reports ant groin pain increases with hip flexion beyond 90 deg. PT-OP-F Manual Assessment Start: 04/15/18 13:17 Freq: Status: Active Protocol: Document 04/15/18 13:20 EA (Rec: 04/16/18 12:43 EA [id number]) Manual Assessments Soft Tissue Assessment Soft Tissue Mobility Assessment Hypomobile left hip joint Joint Mobility Assessment Joint Mobility Assessment LOM due to possible soft tissuue tightness on ant hip region PT-OP-G Mobility & Gait Start: 04/15/18 13:17 Freq: Status: Active Protocol: Document 04/15/18 13:20 EA (Rec: 04/15/18 13:42 EA [id number]) OP Gait Assessment Gait Deviations General Gait Pattern Antalgic Stair Climbing Evaluation Comments Stair Climbing Comments Decrease left foot stance time . PT-OP-J Posture/Palpation/Skin Start: 04/15/18 13:17 Freq: Status: Active Protocol: Document 04/15/18 13:20 EA (Rec: 04/15/18 13:42 EA [id number]) Palpation Assessment Location One Palpation Location Right ant hip Palpation Findings Soft Tissue Tightness PT-OP-K Range of Motion Start: 04/15/18 13:17 Freq: Status: Active Protocol: Document 04/15/18 13:20 EA (Rec: 04/15/18 13:42 EA [id number]) Hip Goniometric Range of Motion Hip Measured in Degrees Left Active Testing Position Supine Flexion w/Knee Flexed 80 Extension 5 Abduction 15 Internal Rotation 15 External Rotation 35 Right Active Testing Position Supine Flexion w/Knee Flexed 90 Extension 10 Abduction 25 Internal Rotation 25 External Rotation 40 PT-OP-L Special Tests Start: 04/15/18 13:17 Freq: Status: Active Protocol: Document 04/15/18 13:20 EA (Rec: 04/15/18 13:42 EA [id number]) Special Tests Hip Special Tests Piriformis Test Results - Scour Test Test Results NOT SENSITIVE Lisa's Test Test Results + PAKO Test Results + PT-OP-M Strength Start: 04/15/18 13:17 Freq: Status: Active Protocol: Document 04/15/18 13:20 EA (Rec: 04/15/18 13:42 EA [id number]) Hip Strength Hip Manual Muscle Testing Left Flexion (L2) 5 Normal Extension (S1) 5 Normal Abduction 4- Good- External Rotation 4+ Good+ Internal Rotation 4- Good- Right Flexion (L2) 5 Normal Extension (S1) 5 Normal Abduction 5 Normal Adduction 5 Normal External Rotation 4+ Good+ Internal Rotation 5 Normal PT-OP-Q Treatments Start: 04/15/18 13:17 Freq: Status: Active Protocol: Document 05/14/18 08:56 EA (Rec: 05/14/18 09:50 EA [id number]) Cardio Equipment Recumbent Stepper (Sci-Fit) Duration (Minutes) 7 Resistance 4 Gym Equipment Shuttle Recovery Unilateral Squats Details full hip flexion range or as tolerated Resistance 100 -150# Shuttle Recovery Platform Stable Reps/Time x 15 x 4sets Therapeutic Exercises Supine Exercises 5 Supine Exercise Name edge table rectus femoris stretch 4 Supine Exercise Name Bridge with T-ball Reps/Minutes x 10 reps x 2 SH up 3 Supine Exercise Name hip abd/add AROM Side left Reps/Minutes x15 reps x 2 2 Supine Exercise Name figure of 4 stretch Side left Reps/Minutes x30sh x 2 1 Supine Exercise Name Hamstring/ hip rotators, IT band, hip flexorsstertch Side left Reps/Minutes x 30SH x 2 Sitting Exercises 1 Sitting Exercise Name low back fwd bending stretch. Reps/Minutes x 15sh x 3 reps Comments add rotation Standing Exercises 3 Standing Exercise Name Steady lunge with hand support Side bilateral Reps/Minutes x 15 reps 1 Standing Exercise Name Side step squat Side bilateral Equipment Used GTB Reps/Minutes x 2 lines Comments cues knee s not pass toes, not to use arm to pull up Other Exercises 2 Other Exercise Name Steps hamstring and calf stretch Reps/Minutes x 15SH x 2 reps 1 Other Exercise Name Half knee ling stretch Side bilateral Comments Rails to hol and foam to knee Manual Therapy Treatment Joint Mobilizations 1 Joint Hip Direction post/inf Grade III Body Position Supine PT-OP-T Assessment and Plan Start: 04/15/18 13:17 Freq: Status: Active Protocol: Document 05/14/18 08:56 EA (Rec: 05/14/18 09:50 EA [id number]) Physical Therapy Assessment Assessment Summary Assessment [place] assessment to femoral nerve did not show any compression..Patient was able to tie shoe to left after stretching to low back extensors, rotators and hip flexion.. Patient is progressing well. Physical Therapy Plan Next Visit Focus/Plan Next Visit Plan Cont with current plan.
--- NOTE | 2018-05-20 10:25 | PT.OTN ---
Current Diagnoses Pain in left hip (05/20/18) Physical Therapy Treatment Note PT-OP-A Visit Information Start: 04/15/18 13:17 Freq: Status: Active Protocol: Document 05/20/18 08:20 EA (Rec: 05/20/18 08:59 EA [id number]) Out-Patient Physical Therapy Visit Information Visit Information Visit Start Time 08:15 Visit Stop Time 09:00 Total Visit Minutes 45 Visit Number 9 PT-OP-B Current Condition Start: 04/15/18 13:17 Freq: Status: Active Protocol: Document 04/15/18 13:20 EA (Rec: 04/15/18 13:42 EA [id number]) Current Condition History of Current Condition Onset Date 5 years ago Current Complaints Left hip pain with stiffness History of Current Condition Present condition started 5 year ago which has been treated 1 year ago with good results but not fully recovered. Pt reports that he does not want to undergo surgery though he was diagnosed with hip OA few years ago; states c/c is difficulty with tieng shoes in seated position and difficulty of getting up from the floor when kneeling as he feels joint stiffness always stopped him. Patient denies hip injury in the past or hip rsurgery. Patient went to his doctor weeks ago and was then referred to PT for further evaluation. Radiographs taken months ago which according to patient that the left hip joint has significant OA. Prior Treatments and Tests Formal PT year ago with same condition Chiropractor ongoing for back problem Future Testing and Treatments Planned None at this time. Treatment Goals Patient/Caregiver Goals 1. be able to bend and tie shoe laces and put the sucks 2. decrease left hip discomfort and stiffness Prior Functional Status Baseline Function- ADL's Independent Baseline Function- Mobility Independent Baseline Function- Recreation/Hobbies Fishing, crabbing, camping with mild difficulty Current Functional Impairments (Reported) Functional Limitations- ADL's Limitation with bending and left foot shoe donning Functional Limitations- Mobility/Gait Indep with no mobility support with moderate limp. Functional Limitations- Recreation/ Fishing, crabbing, camping Hobbies with mild difficulty Personal Factors Other Personal Factors That May Effect Chronicity of the condition Therapy/Recovery PT-OP-C Subjective Start: 04/15/18 13:17 Freq: Status: Active Protocol: Document 05/20/18 08:59 EA (Rec: 05/20/18 09:00 EA [id number]) OP-PT Subjective Patient Comments Patient Comments Pt reports have gained a lot bending forward and reaching in lunge position; states has been compliant with HEP. Patient reports he would be gone for the next 3 weeks for [place] vacation and plan to cont. HEP. Patient Reported Progress Improving PT-OP-F Manual Assessment Start: 04/15/18 13:17 Freq: Status: Active Protocol: Document 04/15/18 13:20 EA (Rec: 04/16/18 12:43 EA [id number]) Manual Assessments Soft Tissue Assessment Soft Tissue Mobility Assessment Hypomobile left hip joint Joint Mobility Assessment Joint Mobility Assessment LOM due to possible soft tissuue tightness on ant hip region PT-OP-G Mobility & Gait Start: 04/15/18 13:17 Freq: Status: Active Protocol: Document 04/15/18 13:20 EA (Rec: 04/15/18 13:42 EA [id number]) OP Gait Assessment Gait Deviations General Gait Pattern Antalgic Stair Climbing Evaluation Comments Stair Climbing Comments Decrease left foot stance time . PT-OP-J Posture/Palpation/Skin Start: 04/15/18 13:17 Freq: Status: Active Protocol: Document 04/15/18 13:20 EA (Rec: 04/15/18 13:42 EA [id number]) Palpation Assessment Location One Palpation Location Right ant hip Palpation Findings Soft Tissue Tightness PT-OP-K Range of Motion Start: 04/15/18 13:17 Freq: Status: Active Protocol: Document 04/15/18 13:20 EA (Rec: 04/15/18 13:42 EA [id number]) Hip Goniometric Range of Motion Hip Measured in Degrees Left Active Testing Position Supine Flexion w/Knee Flexed 80 Extension 5 Abduction 15 Internal Rotation 15 External Rotation 35 Right Active Testing Position Supine Flexion w/Knee Flexed 90 Extension 10 Abduction 25 Internal Rotation 25 External Rotation 40 PT-OP-L Special Tests Start: 04/15/18 13:17 Freq: Status: Active Protocol: Document 04/15/18 13:20 EA (Rec: 04/15/18 13:42 EA [id number]) Special Tests Hip Special Tests Piriformis Test Results - Scour Test Test Results NOT SENSITIVE Lisa's Test Test Results + PAKO Test Results + PT-OP-M Strength Start: 04/15/18 13:17 Freq: Status: Active Protocol: Document 04/15/18 13:20 EA (Rec: 04/15/18 13:42 EA [id number]) Hip Strength Hip Manual Muscle Testing Left Flexion (L2) 5 Normal Extension (S1) 5 Normal Abduction 4- Good- External Rotation 4+ Good+ Internal Rotation 4- Good- Right Flexion (L2) 5 Normal Extension (S1) 5 Normal Abduction 5 Normal Adduction 5 Normal External Rotation 4+ Good+ Internal Rotation 5 Normal PT-OP-Q Treatments Start: 04/15/18 13:17 Freq: Status: Active Protocol: Document 05/20/18 08:20 EA (Rec: 05/20/18 08:59 EA [id number]) Cardio Equipment Recumbent Stepper (Sci-Fit) Duration (Minutes) 7 Resistance 4 Seat Position 14-12 Gym Equipment Shuttle Recovery Bilateral Squats Details 90 deg Resistance 6 cords Shuttle Recovery Platform Stable Reps/Time x 15 reps x 2 Unilateral Squats Details full hip flexion range or as tolerated Resistance 100 -150# Shuttle Recovery Platform Stable Reps/Time x 15 x 4sets Therapeutic Exercises Supine Exercises 5 Supine Exercise Name edge table rectus femoris stretch 4 Supine Exercise Name Bridge with T-ball Reps/Minutes x 10 reps x 2 SH up 2 Supine Exercise Name figure of 4 stretch Side left Reps/Minutes x30sh x 2 1 Supine Exercise Name Hamstring/ hip rotators, IT band, hip flexorsstertch Side left Reps/Minutes x 30SH x 2 Prone Exercises 3 Prone Exercise Name Side bend stretch Reps/Minutes x 15 sh x 3 reps each side 2 Prone Exercise Name Child pose Reps/Minutes x 15 SH x 3 reps 1 Prone Exercise Name Camel and cat Reps/Minutes x 30 SH x 3 reps Standing Exercises 3 Standing Exercise Name Steady lunge with hand support Side bilateral Reps/Minutes x 15 reps 1 Standing Exercise Name Side step squat Side bilateral Equipment Used GTB Reps/Minutes x 2 lines Comments cues knee s not pass toes, not to use arm to pull up Other Exercises 2 Other Exercise Name Steps hamstring and calf stretch Reps/Minutes x 15SH x 2 reps 1 Other Exercise Name Half knee ling stretch Side bilateral Comments Rails to hol and foam to knee PT-OP-T Assessment and Plan Start: 04/15/18 13:17 Freq: Status: Active Protocol: Document 05/20/18 08:20 EA (Rec: 05/20/18 08:59 EA [id number]) Physical Therapy Assessment Assessment Summary Assessment Patient have gained leaning forward to reach floor toward left side. Patient reached goal at this time. Patient would be seen after three weeks. Physical Therapy Plan Next Visit Focus/Plan Next Note Type Progress Note
--- NOTE | 2018-06-12 17:26 | PT.OTRE ---
Current Diagnoses Pain in left hip (06/12/18) Provider Visit Care Team Role Provider Type Leticia Arias MD Attending Provider Non-Staff Family Provider Primary Care Provider Specialty: Medical Address: [address] [place] [address], [id number] Email: Physical Therapy Re-Evaluation PT-OP-A Visit Information Start: 04/15/18 13:17 Freq: Status: Active Protocol: Document 06/12/18 09:30 EA (Rec: 06/12/18 09:46 EA [id number]) Out-Patient Physical Therapy Visit Information Visit Information Visit Type Treatment Note Visit Note Re-eval no charge performed to this date Visit Start Time 08:15 Visit Stop Time 09:05 Total Visit Minutes 50 Visit Number 10 PT-OP-B Current Condition Start: 04/15/18 13:17 Freq: Status: Active Protocol: Document 04/15/18 13:20 EA (Rec: 04/15/18 13:42 EA [id number]) Current Condition History of Current Condition Onset Date 5 years ago Current Complaints Left hip pain with stiffness History of Current Condition Present condition started 5 year ago which has been treated 1 year ago with good results but not fully recovered. Pt reports that he does not want to undergo surgery though he was diagnosed with hip OA few years ago; states c/c is difficulty with tieng shoes in seated position and difficulty of getting up from the floor when kneeling as he feels joint stiffness always stopped him. Patient denies hip injury in the past or hip rsurgery. Patient went to his doctor weeks ago and was then referred to PT for further evaluation. Radiographs taken months ago which according to patient that the left hip joint has significant OA. Prior Treatments and Tests Formal PT year ago with same condition Chiropractor ongoing for back problem Future Testing and Treatments Planned None at this time. Treatment Goals Patient/Caregiver Goals 1. be able to bend and tie shoe laces and put the sucks 2. decrease left hip discomfort and stiffness Prior Functional Status Baseline Function- ADL's Independent Baseline Function- Mobility Independent Baseline Function- Recreation/Hobbies Fishing, crabbing, camping with mild difficulty Current Functional Impairments (Reported) Functional Limitations- ADL's Limitation with bending and left foot shoe donning Functional Limitations- Mobility/Gait Indep with no mobility support with moderate limp. Functional Limitations- Recreation/ Fishing, crabbing, camping Hobbies with mild difficulty Personal Factors Other Personal Factors That May Effect Chronicity of the condition Therapy/Recovery PT-OP-C Subjective Start: 04/15/18 13:17 Freq: Status: Active Protocol: Document 06/12/18 09:30 EA (Rec: 06/12/18 09:46 EA [id number]) OP-PT Subjective Patient Comments Patient Comments PT reports able to perform HEP while on vacation in [place]; states he even lose more weight. Patient reports that he is now able to tie shoes in seating both left and right with difficulty to left foot. He complains of pain to left ant and posterior hip with weight bearing activity and hip flexion past 90 deg. Overall he feels that he is improving steady. Patient Reported Progress Improving Patient Questionnaires Lower Extremity Functional Scale LEFS Score 51 LEFS Impairment 20 to 39% Impaired (Score 48- 62) PT-OP-F Manual Assessment Start: 04/15/18 13:17 Freq: Status: Active Protocol: Document 06/12/18 09:30 EA (Rec: 06/12/18 09:46 EA [id number]) Manual Assessments Soft Tissue Assessment Soft Tissue Mobility Assessment Hypomobile left hip joint Tightness to both hamstring and anterior hip muscles Joint Mobility Assessment Joint Mobility Assessment LOM due to possible soft tissuue tightness on ant hip region and tightness to left hip external rotators PT-OP-G Mobility & Gait Start: 04/15/18 13:17 Freq: Status: Active Protocol: Document 04/15/18 13:20 EA (Rec: 04/15/18 13:42 EA [id number]) OP Gait Assessment Gait Deviations General Gait Pattern Antalgic Stair Climbing Evaluation Comments Stair Climbing Comments Decrease left foot stance time . PT-OP-J Posture/Palpation/Skin Start: 04/15/18 13:17 Freq: Status: Active Protocol: Document 06/12/18 09:30 EA (Rec: 06/12/18 09:46 EA [id number]) Palpation Assessment Location One Palpation Location Right ant hip and upper gluteals Palpation Findings Soft Tissue Tightness Tenderness PT-OP-K Range of Motion Start: 04/15/18 13:17 Freq: Status: Active Protocol: Document 06/12/18 13:32 EA (Rec: 06/12/18 13:33 EA [id number]) Hip Goniometric Range of Motion Hip Measured in Degrees Left Active Testing Position Supine Flexion w/Knee Flexed 90 Extension 10 Abduction 25 Internal Rotation 15 External Rotation 35 Right Active Testing Position Supine Flexion w/Knee Flexed 95 Extension 10 Abduction 25 Internal Rotation 32 External Rotation 40 Hip ROM Limitations Hip ROM Limitations Soft Tissue Tightness Pain PT-OP-L Special Tests Start: 04/15/18 13:17 Freq: Status: Active Protocol: Document 06/12/18 09:30 EA (Rec: 06/12/18 09:46 EA [id number]) Special Tests Hip Special Tests Piriformis Test Results - Scour Test Test Results NOT SENSITIVE Lisa's Test Test Results + PAKO Test Results + PT-OP-M Strength Start: 04/15/18 13:17 Freq: Status: Active Protocol: Document 06/12/18 13:30 EA (Rec: 06/12/18 13:31 EA [id number]) Hip Strength Hip Manual Muscle Testing Left Flexion (L2) 5 Normal Extension (S1) 5 Normal Abduction 4- Good- External Rotation 4+ Good+ Internal Rotation 4 Good Right Flexion (L2) 5 Normal Extension (S1) 5 Normal Abduction 5 Normal Adduction 5 Normal External Rotation 4+ Good+ Internal Rotation 4 Good PT-OP-Q Treatments Start: 04/15/18 13:17 Freq: Status: Active Protocol: Document 06/12/18 09:30 EA (Rec: 06/12/18 09:46 EA [id number]) Therapeutic Exercises Supine Exercises 5 Supine Exercise Name edge table rectus femoris stretch 4 Supine Exercise Name Bridge with T-ball Reps/Minutes x 10 reps x 2 SH up 3 Supine Exercise Name hip abd/add AROM Side left Reps/Minutes x15 reps x 2 2 Supine Exercise Name figure of 4 stretch Side left Reps/Minutes x30sh x 2 1 Supine Exercise Name Hamstring/ hip rotators, IT band, hip flexorsstertch Side left Reps/Minutes x 30SH x 2 Prone Exercises 3 Prone Exercise Name Side bend stretch Reps/Minutes x 15 sh x 3 reps each side 2 Prone Exercise Name Child pose Reps/Minutes x 15 SH x 3 reps 1 Prone Exercise Name Camel and cat Reps/Minutes x 30 SH x 3 reps Manual Therapy Treatment Soft Tissue Mobilization 1 Body Location Hip ext rotators, L Mobilization Type Myofascial Release Rolling Sustained Pressure Trigger Point Release Joint Mobilizations 1 Joint Hip Direction post/inf Grade III Body Position Supine PT-OP-R Modalities Start: 04/15/18 13:17 Freq: Status: Active Protocol: Document 06/12/18 09:30 EA (Rec: 06/12/18 09:46 EA [id number]) Electric Stimulation Electric Stimulation Interferential Current (IFC) Body Location left upper gluteal Combined With Heat/Cold Hot Pack PT-OP-T Assessment and Plan Start: 04/15/18 13:17 Freq: Status: Active Protocol: Document 06/12/18 09:30 EA (Rec: 06/12/18 09:46 EA [id number]) Physical Therapy Assessment Goals Five Impairment Patient unable to tie left shoes in sitting position Alf Goal (LTG) Patient will tie left shoes in sitting position with no pain LTG Duration 4 wks Four Impairment Subjective pain complaint of 2 /10 PS over left mid ant proximal thigh Alf Goal (LTG) Patient will reports midanterior prox thigh pain of 1/10 PS LTG Duration 4 wks improving Three Impairment LEFS score of 50/80 Driver License Reviewing Officer Goal (LTG) Patient will have LEFS score of 65/80 LTG Duration 4 wks improving Two Impairment Min antalgic gait with increased left foot toe out Driver License Reviewing Officer Goal (LTG) Patient will demontrate normal gait LTG Duration 4 wks ( improving, near to normal) One Impairment Decreased Left HIP flexion ROM (0-80 deg) Alf Goal (LTG) Patient will increase Left Hip active flexion to 90 deg to be able to tie shoes in bent position LTG Duration Goal met Progress Towards Goals Progress Towards Goals Progressing Toward Goals Assessment Summary Assessment Pt continue to progress with skilled PT at this time. Continue with current plan. Advance as tolerated. Physical Therapy Plan Frequency and Duration Frequency of Treatment 2x/Week Duration of Treatment 6 wks Plan of Care Start Date 06/10/18 Plan of Care End Date 07/24/18 Therapeutic Interventions Therapeutic Interventions Aquatic Therapy Gait Training Home Exercise Program Joint Mobilizations Manual Therapy Patient/Caregiver Education Self-Care/Home Management Soft Tissue Mobilization Therapeutic Activities Therapeutic Exercises Modalities Cold Pack/Ice Massage Electric Stimulation Hot Packs Ultrasound Next Visit Focus/Plan Next Note Type Treatment Note Next Visit Plan Hip ROM, manual to decrease pain.
--- NOTE | 2018-06-12 17:26 | PT.OPPOC ---
Current Diagnoses Pain in left hip (06/12/18) Provider Visit Care Team Role Provider Type Leticia Arias MD Attending Provider Non-Staff Family Provider Primary Care Provider Specialty: Medical Address: [address] [place] [address], [id number] Email: Plan Of Care PT-OP-T Assessment and Plan Start: 04/15/18 13:17 Freq: Status: Active Protocol: Document 06/12/18 09:30 EA (Rec: 06/12/18 09:46 EA [id number]) Physical Therapy Assessment Goals Five Impairment Patient unable to tie left shoes in sitting position Senior Cost Analyst Goal (LTG) Patient will tie left shoes in sitting position with no pain LTG Duration 4 wks Four Impairment Subjective pain complaint of 2 /10 PS over left mid ant proximal thigh Senior Cost Analyst Goal (LTG) Patient will reports midanterior prox thigh pain of 1/10 PS LTG Duration 4 wks improving Three Impairment LEFS score of 50/80 Prison Goal (LTG) Patient will have LEFS score of 65/80 LTG Duration 4 wks improving Two Impairment Min antalgic gait with increased left foot toe out Senior Cost Analyst Goal (LTG) Patient will demontrate normal gait LTG Duration 4 wks ( improving, near to normal) One Impairment Decreased Left HIP flexion ROM (0-80 deg) Senior Cost Analyst Goal (LTG) Patient will increase Left Hip active flexion to 90 deg to be able to tie shoes in bent position LTG Duration Goal met Progress Towards Goals Progress Towards Goals Progressing Toward Goals Assessment Summary Assessment Pt continue to progress with skilled PT at this time. Continue with current plan. Advance as tolerated. Physical Therapy Plan Frequency and Duration Frequency of Treatment 2x/Week Duration of Treatment 6 wks Plan of Care Start Date 06/10/18 Plan of Care End Date 07/24/18 Therapeutic Interventions Therapeutic Interventions Aquatic Therapy Gait Training Home Exercise Program Joint Mobilizations Manual Therapy Patient/Caregiver Education Self-Care/Home Management Soft Tissue Mobilization Therapeutic Activities Therapeutic Exercises Modalities Cold Pack/Ice Massage Electric Stimulation Hot Packs Ultrasound Next Visit Focus/Plan Next Note Type Treatment Note Next Visit Plan Hip ROM, manual to decrease pain. Plan of Care Dates Plan of Care Start Date 06/10/18 Plan of Care End Date 07/24/18 Please Sign and Return: I have reviewed this Plan of Care and certify that the skilled therapy services above are required to meet the patient?s needs. Physician Signature Date Printed Name and Credentials Clinical Instructor Signature Printed Name and Credentials
--- NOTE | 2018-07-01 14:29 | PT.OTN ---
Current Diagnoses Pain in left hip (07/01/18) Physical Therapy Treatment Note PT-OP-A Visit Information Start: 04/15/18 13:17 Freq: Status: Active Protocol: Document 07/01/18 10:36 EA (Rec: 07/01/18 11:15 EA [id number]) Out-Patient Physical Therapy Visit Information Visit Information Visit Type Treatment Note PT-OP-B Current Condition Start: 04/15/18 13:17 Freq: Status: Active Protocol: Document 04/15/18 13:20 EA (Rec: 04/15/18 13:42 EA [id number]) Current Condition History of Current Condition Onset Date 5 years ago Current Complaints Left hip pain with stiffness History of Current Condition Present condition started 5 year ago which has been treated 1 year ago with good results but not fully recovered. Pt reports that he does not want to undergo surgery though he was diagnosed with hip OA few years ago; states c/c is difficulty with tieng shoes in seated position and difficulty of getting up from the floor when kneeling as he feels joint stiffness always stopped him. Patient denies hip injury in the past or hip rsurgery. Patient went to his doctor weeks ago and was then referred to PT for further evaluation. Radiographs taken months ago which according to patient that the left hip joint has significant OA. Prior Treatments and Tests Formal PT year ago with same condition Chiropractor ongoing for back problem Future Testing and Treatments Planned None at this time. Treatment Goals Patient/Caregiver Goals 1. be able to bend and tie shoe laces and put the sucks 2. decrease left hip discomfort and stiffness Prior Functional Status Baseline Function- ADL's Independent Baseline Function- Mobility Independent Baseline Function- Recreation/Hobbies Fishing, crabbing, camping with mild difficulty Current Functional Impairments (Reported) Functional Limitations- ADL's Limitation with bending and left foot shoe donning Functional Limitations- Mobility/Gait Indep with no mobility support with moderate limp. Functional Limitations- Recreation/ Fishing, crabbing, camping Hobbies with mild difficulty Personal Factors Other Personal Factors That May Effect Chronicity of the condition Therapy/Recovery PT-OP-C Subjective Start: 04/15/18 13:17 Freq: Status: Active Protocol: Document 07/01/18 10:36 EA (Rec: 07/01/18 11:15 EA [id number]) OP-PT Subjective Patient Comments Patient Comments Pt reports consistent with HEP eventhough he was away; states pain is not much to left hip but stiffness still the problem when tying the shoe to left. PT-OP-F Manual Assessment Start: 04/15/18 13:17 Freq: Status: Active Protocol: Document 06/12/18 09:30 EA (Rec: 06/12/18 09:46 EA [id number]) Manual Assessments Soft Tissue Assessment Soft Tissue Mobility Assessment Hypomobile left hip joint Tightness to both hamstring and anterior hip muscles Joint Mobility Assessment Joint Mobility Assessment LOM due to possible soft tissuue tightness on ant hip region and tightness to left hip external rotators PT-OP-G Mobility & Gait Start: 04/15/18 13:17 Freq: Status: Active Protocol: Document 04/15/18 13:20 EA (Rec: 04/15/18 13:42 EA [id number]) OP Gait Assessment Gait Deviations General Gait Pattern Antalgic Stair Climbing Evaluation Comments Stair Climbing Comments Decrease left foot stance time . PT-OP-J Posture/Palpation/Skin Start: 04/15/18 13:17 Freq: Status: Active Protocol: Document 06/12/18 09:30 EA (Rec: 06/12/18 09:46 EA [id number]) Palpation Assessment Location One Palpation Location Right ant hip and upper gluteals Palpation Findings Soft Tissue Tightness Tenderness PT-OP-K Range of Motion Start: 04/15/18 13:17 Freq: Status: Active Protocol: Document 06/12/18 13:32 EA (Rec: 06/12/18 13:33 EA [id number]) Hip Goniometric Range of Motion Hip Measured in Degrees Left Active Testing Position Supine Flexion w/Knee Flexed 90 Extension 10 Abduction 25 Internal Rotation 15 External Rotation 35 Right Active Testing Position Supine Flexion w/Knee Flexed 95 Extension 10 Abduction 25 Internal Rotation 32 External Rotation 40 Hip ROM Limitations Hip ROM Limitations Soft Tissue Tightness Pain PT-OP-L Special Tests Start: 04/15/18 13:17 Freq: Status: Active Protocol: Document 06/12/18 09:30 EA (Rec: 06/12/18 09:46 EA [id number]) Special Tests Hip Special Tests Piriformis Test Results - Scour Test Test Results NOT SENSITIVE Lisa's Test Test Results + PAKO Test Results + PT-OP-M Strength Start: 04/15/18 13:17 Freq: Status: Active Protocol: Document 06/12/18 13:30 EA (Rec: 06/12/18 13:31 EA [id number]) Hip Strength Hip Manual Muscle Testing Left Flexion (L2) 5 Normal Extension (S1) 5 Normal Abduction 4- Good- External Rotation 4+ Good+ Internal Rotation 4 Good Right Flexion (L2) 5 Normal Extension (S1) 5 Normal Abduction 5 Normal Adduction 5 Normal External Rotation 4+ Good+ Internal Rotation 4 Good PT-OP-Q Treatments Start: 04/15/18 13:17 Freq: Status: Active Protocol: Document 07/01/18 10:36 EA (Rec: 07/01/18 11:15 EA [id number]) Cardio Equipment Recumbent Stepper (Sci-Fit) Duration (Minutes) 7 Resistance 4 Seat Position 14-12 Therapeutic Exercises Supine Exercises 5 Supine Exercise Name edge table rectus femoris stretch 4 Supine Exercise Name Bridge with T-ball Reps/Minutes x 10 reps x 2 SH up 3 Supine Exercise Name hip abd/add AROM Side left Reps/Minutes x15 reps x 2 2 Supine Exercise Name figure of 4 stretch Side left Reps/Minutes x30sh x 2 Prone Exercises 3 Prone Exercise Name Side bend stretch Reps/Minutes x 15 sh x 3 reps each side Sitting Exercises 1 Sitting Exercise Name low back fwd bending stretch. Reps/Minutes x 15sh x 3 reps Comments add rotation Standing Exercises 3 Standing Exercise Name Steady lunge with hand support Side bilateral Reps/Minutes x 15 reps Comments to cont. stretch lunge Other Exercises 2 Other Exercise Name Steps hamstring and calf stretch Reps/Minutes x 15SH x 2 reps Manual Therapy Treatment Soft Tissue Mobilization 1 Body Location Hip ext rotators, L Mobilization Type Myofascial Release Rolling Sustained Pressure Trigger Point Release Joint Mobilizations 1 Joint Hip Direction post/inf Grade III Body Position Supine PT-OP-R Modalities Start: 04/15/18 13:17 Freq: Status: Active Protocol: Document 06/12/18 09:30 EA (Rec: 06/12/18 09:46 EA [id number]) Electric Stimulation Electric Stimulation Interferential Current (IFC) Body Location left upper gluteal Combined With Heat/Cold Hot Pack PT-OP-T Assessment and Plan Start: 04/15/18 13:17 Freq: Status: Active Protocol: Document 07/01/18 10:36 EA (Rec: 07/01/18 11:15 EA [id number]) Physical Therapy Assessment Assessment Summary Assessment Tolerated treatement well. Physical Therapy Plan Next Visit Focus/Plan Next Note Type Treatment Note Next Visit Plan Hip ROM, manual to decrease pain.
--- NOTE | 2018-07-09 11:10 | PT.OTN ---
Current Diagnoses Pain in left hip (07/09/18) Physical Therapy Treatment Note PT-OP-A Visit Information Start: 04/15/18 13:17 Freq: Status: Active Protocol: Document 07/09/18 10:33 EA (Rec: 07/09/18 11:08 EA [id number]) Out-Patient Physical Therapy Visit Information Visit Information Visit Type Treatment Note Visit Start Time 09:45 Visit Stop Time 10:30 Total Visit Minutes 50 Visit Number 11 PT-OP-B Current Condition Start: 04/15/18 13:17 Freq: Status: Active Protocol: Document 04/15/18 13:20 EA (Rec: 04/15/18 13:42 EA [id number]) Current Condition History of Current Condition Onset Date 5 years ago Current Complaints Left hip pain with stiffness History of Current Condition Present condition started 5 year ago which has been treated 1 year ago with good results but not fully recovered. Pt reports that he does not want to undergo surgery though he was diagnosed with hip OA few years ago; states c/c is difficulty with tieng shoes in seated position and difficulty of getting up from the floor when kneeling as he feels joint stiffness always stopped him. Patient denies hip injury in the past or hip rsurgery. Patient went to his doctor weeks ago and was then referred to PT for further evaluation. Radiographs taken months ago which according to patient that the left hip joint has significant OA. Prior Treatments and Tests Formal PT year ago with same condition Chiropractor ongoing for back problem Future Testing and Treatments Planned None at this time. Treatment Goals Patient/Caregiver Goals 1. be able to bend and tie shoe laces and put the sucks 2. decrease left hip discomfort and stiffness Prior Functional Status Baseline Function- ADL's Independent Baseline Function- Mobility Independent Baseline Function- Recreation/Hobbies Fishing, crabbing, camping with mild difficulty Current Functional Impairments (Reported) Functional Limitations- ADL's Limitation with bending and left foot shoe donning Functional Limitations- Mobility/Gait Indep with no mobility support with moderate limp. Functional Limitations- Recreation/ Fishing, crabbing, camping Hobbies with mild difficulty Personal Factors Other Personal Factors That May Effect Chronicity of the condition Therapy/Recovery PT-OP-C Subjective Start: 04/15/18 13:17 Freq: Status: Active Protocol: Document 07/09/18 10:33 EA (Rec: 07/09/18 11:08 EA [id number]) OP-PT Subjective Patient Comments Patient Comments Pt reports left hip pain increased with hip flexion; states he wants to get rid the apin and improved ROM. PT-OP-F Manual Assessment Start: 04/15/18 13:17 Freq: Status: Active Protocol: Document 06/12/18 09:30 EA (Rec: 06/12/18 09:46 EA [id number]) Manual Assessments Soft Tissue Assessment Soft Tissue Mobility Assessment Hypomobile left hip joint Tightness to both hamstring and anterior hip muscles Joint Mobility Assessment Joint Mobility Assessment LOM due to possible soft tissuue tightness on ant hip region and tightness to left hip external rotators PT-OP-G Mobility & Gait Start: 04/15/18 13:17 Freq: Status: Active Protocol: Document 04/15/18 13:20 EA (Rec: 04/15/18 13:42 EA [id number]) OP Gait Assessment Gait Deviations General Gait Pattern Antalgic Stair Climbing Evaluation Comments Stair Climbing Comments Decrease left foot stance time . PT-OP-J Posture/Palpation/Skin Start: 04/15/18 13:17 Freq: Status: Active Protocol: Document 06/12/18 09:30 EA (Rec: 06/12/18 09:46 EA [id number]) Palpation Assessment Location One Palpation Location Right ant hip and upper gluteals Palpation Findings Soft Tissue Tightness Tenderness PT-OP-K Range of Motion Start: 04/15/18 13:17 Freq: Status: Active Protocol: Document 06/12/18 13:32 EA (Rec: 06/12/18 13:33 EA [id number]) Hip Goniometric Range of Motion Hip Measured in Degrees Left Active Testing Position Supine Flexion w/Knee Flexed 90 Extension 10 Abduction 25 Internal Rotation 15 External Rotation 35 Right Active Testing Position Supine Flexion w/Knee Flexed 95 Extension 10 Abduction 25 Internal Rotation 32 External Rotation 40 Hip ROM Limitations Hip ROM Limitations Soft Tissue Tightness Pain PT-OP-L Special Tests Start: 04/15/18 13:17 Freq: Status: Active Protocol: Document 06/12/18 09:30 EA (Rec: 06/12/18 09:46 EA [id number]) Special Tests Hip Special Tests Piriformis Test Results - Scour Test Test Results NOT SENSITIVE Lisa's Test Test Results + PAKO Test Results + PT-OP-M Strength Start: 04/15/18 13:17 Freq: Status: Active Protocol: Document 06/12/18 13:30 EA (Rec: 06/12/18 13:31 EA [id number]) Hip Strength Hip Manual Muscle Testing Left Flexion (L2) 5 Normal Extension (S1) 5 Normal Abduction 4- Good- External Rotation 4+ Good+ Internal Rotation 4 Good Right Flexion (L2) 5 Normal Extension (S1) 5 Normal Abduction 5 Normal Adduction 5 Normal External Rotation 4+ Good+ Internal Rotation 4 Good PT-OP-Q Treatments Start: 04/15/18 13:17 Freq: Status: Active Protocol: Document 07/09/18 10:33 EA (Rec: 07/09/18 11:08 EA [id number]) Cardio Equipment Recumbent Stepper (Sci-Fit) Duration (Minutes) 7 Resistance 4 Seat Position 14-12 Gym Equipment Shuttle Recovery Unilateral Squats Details full hip flexion range or as tolerated Resistance 100 -150# Shuttle Recovery Platform Stable Reps/Time x 15 x 4sets Therapeutic Exercises Supine Exercises 5 Supine Exercise Name edge table rectus femoris stretch 4 Supine Exercise Name Bridge with T-ball Reps/Minutes x 10 reps x 2 SH up 2 Supine Exercise Name figure of 4 stretch Side left Reps/Minutes x30sh x 2 1 Supine Exercise Name Hamstring/ hip rotators, IT band, hip flexorsstertch Side left Reps/Minutes x 30SH x 2 Prone Exercises 3 Prone Exercise Name Side bend stretch Reps/Minutes x 15 sh x 3 reps each side Sitting Exercises 1 Sitting Exercise Name low back fwd bending stretch. Reps/Minutes x 15sh x 3 reps Comments add rotation Standing Exercises 3 Standing Exercise Name Steady lunge with hand support Side bilateral Reps/Minutes x 15 reps Comments to cont. stretch lunge 1 Standing Exercise Name Side step squat Side bilateral Equipment Used GTB Reps/Minutes x 2 lines Comments cues knee s not pass toes, not to use arm to pull up Other Exercises 2 Other Exercise Name Steps hamstring and calf stretch Reps/Minutes x 15SH x 2 reps 1 Other Exercise Name Half knee ling stretch Side bilateral Comments Rails to hold and foam to knee Manual Therapy Treatment Soft Tissue Mobilization 1 Body Location Hip ext rotators, L Mobilization Type Myofascial Release Rolling Sustained Pressure Trigger Point Release PT-OP-R Modalities Start: 04/15/18 13:17 Freq: Status: Active Protocol: Document 07/09/18 11:08 EA (Rec: 07/09/18 11:08 EA [id number]) Electric Stimulation Electric Stimulation Interferential Current (IFC) Body Location left upper gluteal Combined With Heat/Cold Hot Pack PT-OP-T Assessment and Plan Start: 04/15/18 13:17 Freq: Status: Active Protocol: Document 07/09/18 10:33 EA (Rec: 07/09/18 11:08 EA [id number]) Physical Therapy Assessment Assessment Summary Assessment Improved hip ROM noted after manual; however pain increased most of the time to ant hip with hip flexion direction. Physical Therapy Plan Next Visit Focus/Plan Next Note Type Treatment Note Next Visit Plan Hip ROM, manual to decrease pain.
--- NOTE | 2018-07-14 12:20 | PT.OTN ---
Current Diagnoses Pain in left hip (07/14/18) Physical Therapy Treatment Note PT-OP-A Visit Information Start: 04/15/18 13:17 Freq: Status: Active Protocol: Document 07/14/18 07:33 EA (Rec: 07/14/18 08:54 EA [id number]) Out-Patient Physical Therapy Visit Information Visit Information Visit Type Treatment Note Visit Start Time 07:30 Visit Stop Time 08:25 Total Visit Minutes 55 Visit Number 12 PT-OP-B Current Condition Start: 04/15/18 13:17 Freq: Status: Active Protocol: Document 04/15/18 13:20 EA (Rec: 04/15/18 13:42 EA [id number]) Current Condition History of Current Condition Onset Date 5 years ago Current Complaints Left hip pain with stiffness History of Current Condition Present condition started 5 year ago which has been treated 1 year ago with good results but not fully recovered. Pt reports that he does not want to undergo surgery though he was diagnosed with hip OA few years ago; states c/c is difficulty with tieng shoes in seated position and difficulty of getting up from the floor when kneeling as he feels joint stiffness always stopped him. Patient denies hip injury in the past or hip rsurgery. Patient went to his doctor weeks ago and was then referred to PT for further evaluation. Radiographs taken months ago which according to patient that the left hip joint has significant OA. Prior Treatments and Tests Formal PT year ago with same condition Chiropractor ongoing for back problem Future Testing and Treatments Planned None at this time. Treatment Goals Patient/Caregiver Goals 1. be able to bend and tie shoe laces and put the sucks 2. decrease left hip discomfort and stiffness Prior Functional Status Baseline Function- ADL's Independent Baseline Function- Mobility Independent Baseline Function- Recreation/Hobbies Fishing, crabbing, camping with mild difficulty Current Functional Impairments (Reported) Functional Limitations- ADL's Limitation with bending and left foot shoe donning Functional Limitations- Mobility/Gait Indep with no mobility support with moderate limp. Functional Limitations- Recreation/ Fishing, crabbing, camping Hobbies with mild difficulty Personal Factors Other Personal Factors That May Effect Chronicity of the condition Therapy/Recovery PT-OP-C Subjective Start: 04/15/18 13:17 Freq: Status: Active Protocol: Document 07/14/18 07:33 EA (Rec: 07/14/18 08:54 EA [id number]) OP-PT Subjective Patient Comments Patient Comments Pt reports last sesssion was great; states able to perform house painting and others with ease mobility to left joint; states last session works really well to his issue. PT-OP-F Manual Assessment Start: 04/15/18 13:17 Freq: Status: Active Protocol: Document 06/12/18 09:30 EA (Rec: 06/12/18 09:46 EA [id number]) Manual Assessments Soft Tissue Assessment Soft Tissue Mobility Assessment Hypomobile left hip joint Tightness to both hamstring and anterior hip muscles Joint Mobility Assessment Joint Mobility Assessment LOM due to possible soft tissuue tightness on ant hip region and tightness to left hip external rotators PT-OP-G Mobility & Gait Start: 04/15/18 13:17 Freq: Status: Active Protocol: Document 04/15/18 13:20 EA (Rec: 04/15/18 13:42 EA [id number]) OP Gait Assessment Gait Deviations General Gait Pattern Antalgic Stair Climbing Evaluation Comments Stair Climbing Comments Decrease left foot stance time . PT-OP-J Posture/Palpation/Skin Start: 04/15/18 13:17 Freq: Status: Active Protocol: Document 06/12/18 09:30 EA (Rec: 06/12/18 09:46 EA [id number]) Palpation Assessment Location One Palpation Location Right ant hip and upper gluteals Palpation Findings Soft Tissue Tightness Tenderness PT-OP-K Range of Motion Start: 04/15/18 13:17 Freq: Status: Active Protocol: Document 06/12/18 13:32 EA (Rec: 06/12/18 13:33 EA [id number]) Hip Goniometric Range of Motion Hip Measured in Degrees Left Active Testing Position Supine Flexion w/Knee Flexed 90 Extension 10 Abduction 25 Internal Rotation 15 External Rotation 35 Right Active Testing Position Supine Flexion w/Knee Flexed 95 Extension 10 Abduction 25 Internal Rotation 32 External Rotation 40 Hip ROM Limitations Hip ROM Limitations Soft Tissue Tightness Pain PT-OP-L Special Tests Start: 04/15/18 13:17 Freq: Status: Active Protocol: Document 06/12/18 09:30 EA (Rec: 06/12/18 09:46 EA [id number]) Special Tests Hip Special Tests Piriformis Test Results - Scour Test Test Results NOT SENSITIVE Lisa's Test Test Results + PAKO Test Results + PT-OP-M Strength Start: 04/15/18 13:17 Freq: Status: Active Protocol: Document 06/12/18 13:30 EA (Rec: 06/12/18 13:31 EA [id number]) Hip Strength Hip Manual Muscle Testing Left Flexion (L2) 5 Normal Extension (S1) 5 Normal Abduction 4- Good- External Rotation 4+ Good+ Internal Rotation 4 Good Right Flexion (L2) 5 Normal Extension (S1) 5 Normal Abduction 5 Normal Adduction 5 Normal External Rotation 4+ Good+ Internal Rotation 4 Good PT-OP-Q Treatments Start: 04/15/18 13:17 Freq: Status: Active Protocol: Document 07/14/18 07:33 EA (Rec: 07/14/18 08:54 EA [id number]) Cardio Equipment Recumbent Stepper (Sci-Fit) Duration (Minutes) 7 Resistance 4 Seat Position 14-12 Therapeutic Exercises Supine Exercises 5 Supine Exercise Name edge table rectus femoris stretch 3 Supine Exercise Name hip abd/add AROM Side left Reps/Minutes x15 reps x 2 2 Supine Exercise Name figure of 4 stretch Side left Reps/Minutes x30sh x 2 1 Supine Exercise Name Hamstring/ hip rotators, IT band, hip flexorsstertch Side left Reps/Minutes x 30SH x 2 Standing Exercises 3 Standing Exercise Name Steady lunge with hand support Side bilateral Reps/Minutes x 15 reps Comments to cont. stretch lunge Other Exercises 1 Other Exercise Name Half knee ling stretch Side bilateral Comments Rails to hol and foam to knee Manual Therapy Treatment Soft Tissue Mobilization 1 Body Location Hip ext rotators, L Mobilization Type Myofascial Release Rolling Sustained Pressure Trigger Point Release Joint Mobilizations 1 Joint Hip Direction post/inf Grade III Body Position Supine PT-OP-R Modalities Start: 04/15/18 13:17 Freq: Status: Active Protocol: Document 07/14/18 07:33 EA (Rec: 07/14/18 08:54 EA [id number]) Electric Stimulation Electric Stimulation Interferential Current (IFC) Body Location left upper gluteal Combined With Heat/Cold Hot Pack PT-OP-T Assessment and Plan Start: 04/15/18 13:17 Freq: Status: Active Protocol: Document 07/14/18 07:33 EA (Rec: 07/14/18 08:54 EA [id number]) Physical Therapy Assessment Assessment Summary Assessment Tolerated treatment well. Physical Therapy Plan Next Visit Focus/Plan Next Note Type Treatment Note Next Visit Plan Hip ROM, manual to decrease pain.
--- NOTE | 2018-07-21 17:50 | PT.OPPOC ---
Current Diagnoses Pain in left hip (07/21/18) Provider Visit Care Team Role Provider Type Leticia Arias MD Attending Provider Non-Staff Family Provider Primary Care Provider Specialty: Medical Address: [address] [place] [address], [id number] Email: Plan Of Care PT-OP-T Assessment and Plan Start: 04/15/18 13:17 Freq: Status: Active Protocol: Document 07/21/18 10:16 EA (Rec: 07/21/18 10:25 EA [id number]) Physical Therapy Assessment Rehab Potential Rehabilitation Potential Fair Impairments Impairments Functional Activities Functional Mobility Gait Pain ROM Soft Tissue Mobility Strength Goals Five Impairment Patient unable to tie left shoes in sitting position Long-Term Goal (LTG) Patient will tie left shoes in sitting position with no pain LTG Duration 4 wks Four Impairment Subjective pain complaint of 2 /10 PS over left mid ant proximal thigh 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 (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) Patient will reports midanterior prox thigh pain of 1/10 PS LTG Duration 4 wks improving Three Impairment LEFS score of 50/80 Long-Term Goal (LTG) Patient will have LEFS score of 65/80 LTG Duration 4 wks improving Two Impairment Min antalgic gait with increased left foot toe out Long-Term Goal (LTG) Patient will demonstrate normal gait LTG Duration 4 wks ( improving, near to normal) One Impairment Decreased Left HIP flexion ROM (0-90 deg) 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 Patient continue to show progress on his personal goals of reaching the left foot in squat position. Patient will continue to benefit with skilled PT. Physical Therapy Plan Frequency and Duration Frequency of Treatment 2x/Week Duration of Treatment 6 wks Plan of Care Start Date 05/25/18 Plan of Care End Date 09/05/18 Therapeutic Interventions Therapeutic Interventions Gait Training Home Exercise Program Joint Mobilizations Manual Therapy Patient/Caregiver Education Self-Care/Home Management Taping Modalities Cold Pack/Ice Massage Electric Stimulation Hot Packs Ultrasound Next Visit Focus/Plan Next Note Type Treatment Note Next Visit Plan Hip ROM, manual PT to decrease pain. Advance as tolerated Plan of Care Dates Plan of Care Start Date 05/25/18 Plan of Care End Date 09/05/18 Please Sign and Return: I have reviewed this Plan of Care and certify that the skilled therapy services above are required to meet the patient?s needs. Physician Signature Date Printed Name and Credentials Clinical Instructor Signature Printed Name and Credentials
--- NOTE | 2018-07-21 17:50 | PT.OTRE ---
Current Diagnoses Pain in left hip (07/21/18) Provider Visit Care Team Role Provider Type Leticia Arias MD Attending Provider Non-Staff Family Provider Primary Care Provider Specialty: Medical Address: [address] [place] [address], [id number] Email: Physical Therapy Re-Evaluation PT-OP-A Visit Information Start: 04/15/18 13:17 Freq: Status: Active Protocol: Document 07/21/18 10:16 EA (Rec: 07/21/18 10:25 EA [id number]) Out-Patient Physical Therapy Visit Information Visit Information Visit Type Treatment Note Visit Note Re-eval no charge performed this visit Visit Start Time 07:30 Visit Stop Time 08:25 Total Visit Minutes 55 Visit Number 13 PT-OP-B Current Condition Start: 04/15/18 13:17 Freq: Status: Active Protocol: Document 04/15/18 13:20 EA (Rec: 04/15/18 13:42 EA [id number]) Current Condition History of Current Condition Onset Date 5 years ago Current Complaints Left hip pain with stiffness History of Current Condition Present condition started 5 year ago which has been treated 1 year ago with good results but not fully recovered. Pt reports that he does not want to undergo surgery though he was diagnosed with hip OA few years ago; states c/c is difficulty with tieng shoes in seated position and difficulty of getting up from the floor when kneeling as he feels joint stiffness always stopped him. Patient denies hip injury in the past or hip rsurgery. Patient went to his doctor weeks ago and was then referred to PT for further evaluation. Radiographs taken months ago which according to patient that the left hip joint has significant OA. Prior Treatments and Tests Formal PT year ago with same condition Chiropractor ongoing for back problem Future Testing and Treatments Planned None at this time. Treatment Goals Patient/Caregiver Goals 1. be able to bend and tie shoe laces and put the sucks 2. decrease left hip discomfort and stiffness Prior Functional Status Baseline Function- ADL's Independent Baseline Function- Mobility Independent Baseline Function- Recreation/Hobbies Fishing, crabbing, camping with mild difficulty Current Functional Impairments (Reported) Functional Limitations- ADL's Limitation with bending and left foot shoe donning Functional Limitations- Mobility/Gait Indep with no mobility support with moderate limp. Functional Limitations- Recreation/ Fishing, crabbing, camping Hobbies with mild difficulty Personal Factors Other Personal Factors That May Effect Chronicity of the condition Therapy/Recovery PT-OP-C Subjective Start: 04/15/18 13:17 Freq: Status: Active Protocol: Document 07/21/18 10:16 EA (Rec: 07/21/18 10:25 EA [id number]) OP-PT Subjective Patient Comments Patient Comments Pt reports compliant with HEP and almsot now able to reach left foot for tieng the shoes in the left; overall he feels that he is improving and wants to cont. skilled PT. Patient Reported Progress Improving Patient Questionnaires Lower Extremity Functional Scale LEFS Score 55 LEFS Impairment 20 to 39% Impaired (Score 48- 62) PT-OP-F Manual Assessment Start: 04/15/18 13:17 Freq: Status: Active Protocol: Document 07/21/18 17:48 EA (Rec: 07/22/18 12:49 EA [id number]) Manual Assessments Soft Tissue Assessment Soft Tissue Mobility Assessment Hypomobile left hip joint Tightness to both hamstring and anterior hip muscles Joint Mobility Assessment Joint Mobility Assessment LOM due to possible soft tissuue tightness on ant hip region and tightness to left hip external rotators PT-OP-G Mobility & Gait Start: 04/15/18 13:17 Freq: Status: Active Protocol: Document 04/15/18 13:20 EA (Rec: 04/15/18 13:42 EA [id number]) OP Gait Assessment Gait Deviations General Gait Pattern Antalgic Stair Climbing Evaluation Comments Stair Climbing Comments Decrease left foot stance time . PT-OP-J Posture/Palpation/Skin Start: 04/15/18 13:17 Freq: Status: Active Protocol: Document 06/12/18 09:30 EA (Rec: 06/12/18 09:46 EA [id number]) Palpation Assessment Location One Palpation Location Right ant hip and upper gluteals Palpation Findings Soft Tissue Tightness Tenderness PT-OP-K Range of Motion Start: 04/15/18 13:17 Freq: Status: Active Protocol: Document 06/12/18 13:32 EA (Rec: 06/12/18 13:33 EA [id number]) Hip Goniometric Range of Motion Hip Measured in Degrees Left Active Testing Position Supine Flexion w/Knee Flexed 90 Extension 10 Abduction 25 Internal Rotation 15 External Rotation 35 Right Active Testing Position Supine Flexion w/Knee Flexed 95 Extension 10 Abduction 25 Internal Rotation 32 External Rotation 40 Hip ROM Limitations Hip ROM Limitations Soft Tissue Tightness Pain PT-OP-L Special Tests Start: 04/15/18 13:17 Freq: Status: Active Protocol: Document 06/12/18 09:30 EA (Rec: 06/12/18 09:46 EA [id number]) Special Tests Hip Special Tests Piriformis Test Results - Scour Test Test Results NOT SENSITIVE Lisa's Test Test Results + PAKO Test Results + PT-OP-M Strength Start: 04/15/18 13:17 Freq: Status: Active Protocol: Document 06/12/18 13:30 EA (Rec: 06/12/18 13:31 EA [id number]) Hip Strength Hip Manual Muscle Testing Left Flexion (L2) 5 Normal Extension (S1) 5 Normal Abduction 4- Good- External Rotation 4+ Good+ Internal Rotation 4 Good Right Flexion (L2) 5 Normal Extension (S1) 5 Normal Abduction 5 Normal Adduction 5 Normal External Rotation 4+ Good+ Internal Rotation 4 Good PT-OP-Q Treatments Start: 04/15/18 13:17 Freq: Status: Active Protocol: Document 07/21/18 10:16 EA (Rec: 07/21/18 10:25 EA [id number]) Cardio Equipment Recumbent Stepper (Sci-Fit) Duration (Minutes) 7 Resistance 3 Seat Position 14-12 Gym Equipment Shuttle Recovery Unilateral Squats Details full hip flexion range or as tolerated Resistance 100 # Shuttle Recovery Platform Stable Reps/Time x 15 x 3 sets Therapeutic Exercises Supine Exercises 2 Supine Exercise Name figure of 4 stretch Side left Reps/Minutes x30sh x 2 Standing Exercises 3 Standing Exercise Name Steady lunge with hand support Side bilateral Reps/Minutes x 15 reps Comments to cont. stretch lunge Other Exercises 2 Other Exercise Name Steps hamstring and calf stretch Reps/Minutes x 15SH x 2 reps 1 Other Exercise Name Half knee ling stretch Side bilateral Comments Rails to hol and foam to knee Manual Therapy Treatment Soft Tissue Mobilization 1 Body Location Hip ext rotators, L Mobilization Type Myofascial Release Rolling Sustained Pressure Trigger Point Release Joint Mobilizations 1 Joint Hip Direction post/inf Grade III Body Position Supine PT-OP-R Modalities Start: 04/15/18 13:17 Freq: Status: Active Protocol: Document 07/21/18 10:16 EA (Rec: 07/21/18 10:25 EA [id number]) Electric Stimulation Electric Stimulation Interferential Current (IFC) Body Location left upper gluteal Duration (Minutes) 15 Intensity 15 Combined With Heat/Cold Hot Pack PT-OP-T Assessment and Plan Start: 04/15/18 13:17 Freq: Status: Active Protocol: Document 07/21/18 10:16 EA (Rec: 07/21/18 10:25 EA [id number]) Physical Therapy Assessment Rehab Potential Rehabilitation Potential Fair Impairments Impairments Functional Activities Functional Mobility Gait Pain ROM Soft Tissue Mobility Strength Goals Five Impairment Patient unable to tie left shoes in sitting position Penitentiary Goal (LTG) Patient will tie left shoes in sitting position with no pain LTG Duration 4 wks Four Impairment Subjective pain complaint of 2 /10 PS over left mid ant proximal thigh Penitentiary Goal (LTG) Patient will reports midanterior prox thigh pain of 1/10 PS LTG Duration 4 wks improving Three Impairment LEFS score of 50/80 Manager Sas Goal (LTG) Patient will have LEFS score of 65/80 LTG Duration 4 wks improving Two Impairment Min antalgic gait with increased left foot toe out Manager Sas Goal (LTG) Patient will demonstrate normal gait LTG Duration 4 wks ( improving, near to normal) One Impairment Decreased Left HIP flexion ROM (0-90 deg) Manager Sas Goal (LTG) Patient will increase Left Hip active/passive flexion to 115deg to be able to tie shoes in squat position LTG Duration 4 wks Progress Towards Goals Progress Towards Goals Progressing Toward Goals Assessment Summary Assessment Pt exhibit improved gait and functional mobility due to less hip pain and increased hip ROM. Patient continue to show progress on his personal goals of reaching the left foot in squat position. Patient will continue to benefit with skilled PT. Physical Therapy Plan Frequency and Duration Frequency of Treatment 2x/Week Duration of Treatment 6 wks Plan of Care Start Date 05/25/18 Plan of Care End Date 09/05/18 Therapeutic Interventions Therapeutic Interventions Gait Training Home Exercise Program Joint Mobilizations Manual Therapy Patient/Caregiver Education Self-Care/Home Management Taping Modalities Cold Pack/Ice Massage Electric Stimulation Hot Packs Ultrasound Next Visit Focus/Plan Next Note Type Treatment Note Next Visit Plan Hip ROM, manual PT to decrease pain. Advance as tolerated
--- NOTE | 2018-07-28 12:15 | PT.OTN ---
Current Diagnoses Pain in left hip (07/28/18) Physical Therapy Treatment Note PT-OP-A Visit Information Start: 04/15/18 13:17 Freq: Status: Active Protocol: Document 07/28/18 09:04 EA (Rec: 07/28/18 09:50 EA [id number]) Out-Patient Physical Therapy Visit Information Visit Information Visit Type Treatment Note Visit Start Time 08:15 Visit Stop Time 09:10 Total Visit Minutes 55 Visit Number 14 PT-OP-B Current Condition Start: 04/15/18 13:17 Freq: Status: Active Protocol: Document 04/15/18 13:20 EA (Rec: 04/15/18 13:42 EA [id number]) Current Condition History of Current Condition Onset Date 5 years ago Current Complaints Left hip pain with stiffness History of Current Condition Present condition started 5 year ago which has been treated 1 year ago with good results but not fully recovered. Pt reports that he does not want to undergo surgery though he was diagnosed with hip OA few years ago; states c/c is difficulty with tieng shoes in seated position and difficulty of getting up from the floor when kneeling as he feels joint stiffness always stopped him. Patient denies hip injury in the past or hip rsurgery. Patient went to his doctor weeks ago and was then referred to PT for further evaluation. Radiographs taken months ago which according to patient that the left hip joint has significant OA. Prior Treatments and Tests Formal PT year ago with same condition Chiropractor ongoing for back problem Future Testing and Treatments Planned None at this time. Treatment Goals Patient/Caregiver Goals 1. be able to bend and tie shoe laces and put the sucks 2. decrease left hip discomfort and stiffness Prior Functional Status Baseline Function- ADL's Independent Baseline Function- Mobility Independent Baseline Function- Recreation/Hobbies Fishing, crabbing, camping with mild difficulty Current Functional Impairments (Reported) Functional Limitations- ADL's Limitation with bending and left foot shoe donning Functional Limitations- Mobility/Gait Indep with no mobility support with moderate limp. Functional Limitations- Recreation/ Fishing, crabbing, camping Hobbies with mild difficulty Personal Factors Other Personal Factors That May Effect Chronicity of the condition Therapy/Recovery PT-OP-C Subjective Start: 04/15/18 13:17 Freq: Status: Active Protocol: Document 07/21/18 10:16 EA (Rec: 07/21/18 10:25 EA [id number]) OP-PT Subjective Patient Comments Patient Comments Pt reports compliant with HEP and almsot now able to reach left foot for tieng the shoes in the left; overall he feels that he is improving and wants to cont. skilled PT. Patient Reported Progress Improving Patient Questionnaires Lower Extremity Functional Scale LEFS Score 55 LEFS Impairment 20 to 39% Impaired (Score 48- 62) PT-OP-F Manual Assessment Start: 04/15/18 13:17 Freq: Status: Active Protocol: Document 07/21/18 17:48 EA (Rec: 07/22/18 12:49 EA [id number]) Manual Assessments Soft Tissue Assessment Soft Tissue Mobility Assessment Hypomobile left hip joint Tightness to both hamstring and anterior hip muscles Joint Mobility Assessment Joint Mobility Assessment LOM due to possible soft tissuue tightness on ant hip region and tightness to left hip external rotators PT-OP-G Mobility & Gait Start: 04/15/18 13:17 Freq: Status: Active Protocol: Document 04/15/18 13:20 EA (Rec: 04/15/18 13:42 EA [id number]) OP Gait Assessment Gait Deviations General Gait Pattern Antalgic Stair Climbing Evaluation Comments Stair Climbing Comments Decrease left foot stance time . PT-OP-J Posture/Palpation/Skin Start: 04/15/18 13:17 Freq: Status: Active Protocol: Document 06/12/18 09:30 EA (Rec: 06/12/18 09:46 EA [id number]) Palpation Assessment Location One Palpation Location Right ant hip and upper gluteals Palpation Findings Soft Tissue Tightness Tenderness PT-OP-K Range of Motion Start: 04/15/18 13:17 Freq: Status: Active Protocol: Document 06/12/18 13:32 EA (Rec: 06/12/18 13:33 EA [id number]) Hip Goniometric Range of Motion Hip Measured in Degrees Left Active Testing Position Supine Flexion w/Knee Flexed 90 Extension 10 Abduction 25 Internal Rotation 15 External Rotation 35 Right Active Testing Position Supine Flexion w/Knee Flexed 95 Extension 10 Abduction 25 Internal Rotation 32 External Rotation 40 Hip ROM Limitations Hip ROM Limitations Soft Tissue Tightness Pain PT-OP-L Special Tests Start: 04/15/18 13:17 Freq: Status: Active Protocol: Document 06/12/18 09:30 EA (Rec: 06/12/18 09:46 EA [id number]) Special Tests Hip Special Tests Piriformis Test Results - Scour Test Test Results NOT SENSITIVE Lisa's Test Test Results + PAKO Test Results + PT-OP-M Strength Start: 04/15/18 13:17 Freq: Status: Active Protocol: Document 06/12/18 13:30 EA (Rec: 06/12/18 13:31 EA [id number]) Hip Strength Hip Manual Muscle Testing Left Flexion (L2) 5 Normal Extension (S1) 5 Normal Abduction 4- Good- External Rotation 4+ Good+ Internal Rotation 4 Good Right Flexion (L2) 5 Normal Extension (S1) 5 Normal Abduction 5 Normal Adduction 5 Normal External Rotation 4+ Good+ Internal Rotation 4 Good PT-OP-Q Treatments Start: 04/15/18 13:17 Freq: Status: Active Protocol: Document 07/28/18 09:04 EA (Rec: 07/28/18 09:50 EA [id number]) Cardio Equipment Recumbent Stepper (Sci-Fit) Duration (Minutes) 7 Resistance 3 Seat Position 14-12 Gym Equipment Shuttle Recovery Unilateral Squats Details full hip flexion range or as tolerated Resistance 50 # Shuttle Recovery Platform Stable Reps/Time x 15 x 3 sets Therapeutic Exercises Supine Exercises 5 Supine Exercise Name edge table rectus femoris stretch 3 Supine Exercise Name hip abd/add AROM Side left Resistance Lv2 Reps/Minutes x15 reps x 2 2 Supine Exercise Name figure of 4 stretch Side left Reps/Minutes x30sh x 2 1 Supine Exercise Name Hamstring/ hip rotators, IT band, hip flexorsstertch Side left Reps/Minutes x 30SH x 2 Prone Exercises 3 Prone Exercise Name Side bend stretch Reps/Minutes x 15 sh x 3 reps each side Sidelying Exercises 2 Sidelying Exercise Name Clamshell Side left Resistance Lv2 Sitting Exercises 1 Sitting Exercise Name low back fwd bending stretch. Reps/Minutes x 15sh x 3 reps Comments add rotation Standing Exercises 3 Standing Exercise Name Steady lunge with hand support Side bilateral Reps/Minutes x 15 reps Comments to cont. stretch lunge 1 Standing Exercise Name Side step squat Side bilateral Equipment Used GTB Reps/Minutes x 2 lines Comments cues knee s not pass toes, not to use arm to pull up Other Exercises 3 Other Exercise Name Stirs single step foot reaching Reps/Minutes x 5 reps x 15SH 2 Other Exercise Name Steps hamstring and calf stretch Reps/Minutes x 15SH x 2 reps 1 Other Exercise Name Half knee ling stretch Side bilateral Comments Rails to hol and foam to knee Manual Therapy Treatment Soft Tissue Mobilization 1 Body Location Hip ext rotators, L Mobilization Type Myofascial Release Rolling Sustained Pressure Trigger Point Release Joint Mobilizations 1 Joint Hip Direction post/inf Grade III Body Position Supine PT-OP-R Modalities Start: 04/15/18 13:17 Freq: Status: Active Protocol: Document 07/28/18 09:04 EA (Rec: 07/28/18 09:50 EA [id number]) Electric Stimulation Electric Stimulation Interferential Current (IFC) Body Location left upper gluteal Duration (Minutes) 15 Intensity 15 Combined With Heat/Cold Hot Pack PT-OP-T Assessment and Plan Start: 04/15/18 13:17 Freq: Status: Active Protocol: Document 07/28/18 09:04 EA (Rec: 07/28/18 09:50 EA [id number]) Physical Therapy Assessment Assessment Summary Assessment Pt is now able to reach floor at half standing; patient is progressing well. Physical Therapy Plan Next Visit Focus/Plan Next Note Type Treatment Note Next Visit Plan Hip ROM, manual PT to decrease pain. Advance as tolerated
--- NOTE | 2018-08-05 12:13 | PT.OTN ---
Current Diagnoses Pain in left hip (08/05/18) Physical Therapy Treatment Note PT-OP-A Visit Information Start: 04/15/18 13:17 Freq: Status: Active Protocol: Document 08/05/18 07:35 EA (Rec: 08/05/18 09:01 EA [id number]) Out-Patient Physical Therapy Visit Information Visit Information Visit Type Treatment Note Visit Start Time 07:30 Visit Stop Time 08:15 Total Visit Minutes 45 Visit Number 15 PT-OP-B Current Condition Start: 04/15/18 13:17 Freq: Status: Active Protocol: Document 04/15/18 13:20 EA (Rec: 04/15/18 13:42 EA [id number]) Current Condition History of Current Condition Onset Date 5 years ago Current Complaints Left hip pain with stiffness History of Current Condition Present condition started 5 year ago which has been treated 1 year ago with good results but not fully recovered. Pt reports that he does not want to undergo surgery though he was diagnosed with hip OA few years ago; states c/c is difficulty with tieng shoes in seated position and difficulty of getting up from the floor when kneeling as he feels joint stiffness always stopped him. Patient denies hip injury in the past or hip rsurgery. Patient went to his doctor weeks ago and was then referred to PT for further evaluation. Radiographs taken months ago which according to patient that the left hip joint has significant OA. Prior Treatments and Tests Formal PT year ago with same condition Chiropractor ongoing for back problem Future Testing and Treatments Planned None at this time. Treatment Goals Patient/Caregiver Goals 1. be able to bend and tie shoe laces and put the sucks 2. decrease left hip discomfort and stiffness Prior Functional Status Baseline Function- ADL's Independent Baseline Function- Mobility Independent Baseline Function- Recreation/Hobbies Fishing, crabbing, camping with mild difficulty Current Functional Impairments (Reported) Functional Limitations- ADL's Limitation with bending and left foot shoe donning Functional Limitations- Mobility/Gait Indep with no mobility support with moderate limp. Functional Limitations- Recreation/ Fishing, crabbing, camping Hobbies with mild difficulty Personal Factors Other Personal Factors That May Effect Chronicity of the condition Therapy/Recovery PT-OP-C Subjective Start: 04/15/18 13:17 Freq: Status: Active Protocol: Document 08/05/18 07:35 EA (Rec: 08/05/18 09:01 EA [id number]) OP-PT Subjective Patient Comments Patient Comments Pt reports compliant with HEP; progress is slow but steady. Pt states able to climb up stairs with less pain at this time. PT-OP-F Manual Assessment Start: 04/15/18 13:17 Freq: Status: Active Protocol: Document 07/21/18 17:48 EA (Rec: 07/22/18 12:49 EA [id number]) Manual Assessments Soft Tissue Assessment Soft Tissue Mobility Assessment Hypomobile left hip joint Tightness to both hamstring and anterior hip muscles Joint Mobility Assessment Joint Mobility Assessment LOM due to possible soft tissuue tightness on ant hip region and tightness to left hip external rotators PT-OP-G Mobility & Gait Start: 04/15/18 13:17 Freq: Status: Active Protocol: Document 04/15/18 13:20 EA (Rec: 04/15/18 13:42 EA [id number]) OP Gait Assessment Gait Deviations General Gait Pattern Antalgic Stair Climbing Evaluation Comments Stair Climbing Comments Decrease left foot stance time . PT-OP-J Posture/Palpation/Skin Start: 04/15/18 13:17 Freq: Status: Active Protocol: Document 06/12/18 09:30 EA (Rec: 06/12/18 09:46 EA [id number]) Palpation Assessment Location One Palpation Location Right ant hip and upper gluteals Palpation Findings Soft Tissue Tightness Tenderness PT-OP-K Range of Motion Start: 04/15/18 13:17 Freq: Status: Active Protocol: Document 06/12/18 13:32 EA (Rec: 06/12/18 13:33 EA [id number]) Hip Goniometric Range of Motion Hip Measured in Degrees Left Active Testing Position Supine Flexion w/Knee Flexed 90 Extension 10 Abduction 25 Internal Rotation 15 External Rotation 35 Right Active Testing Position Supine Flexion w/Knee Flexed 95 Extension 10 Abduction 25 Internal Rotation 32 External Rotation 40 Hip ROM Limitations Hip ROM Limitations Soft Tissue Tightness Pain PT-OP-L Special Tests Start: 04/15/18 13:17 Freq: Status: Active Protocol: Document 06/12/18 09:30 EA (Rec: 06/12/18 09:46 EA [id number]) Special Tests Hip Special Tests Piriformis Test Results - Scour Test Test Results NOT SENSITIVE Lisa's Test Test Results + PAKO Test Results + PT-OP-M Strength Start: 04/15/18 13:17 Freq: Status: Active Protocol: Document 06/12/18 13:30 EA (Rec: 06/12/18 13:31 EA [id number]) Hip Strength Hip Manual Muscle Testing Left Flexion (L2) 5 Normal Extension (S1) 5 Normal Abduction 4- Good- External Rotation 4+ Good+ Internal Rotation 4 Good Right Flexion (L2) 5 Normal Extension (S1) 5 Normal Abduction 5 Normal Adduction 5 Normal External Rotation 4+ Good+ Internal Rotation 4 Good PT-OP-Q Treatments Start: 04/15/18 13:17 Freq: Status: Active Protocol: Document 08/05/18 07:35 EA (Rec: 08/05/18 09:01 EA [id number]) Cardio Equipment Recumbent Stepper (Sci-Fit) Duration (Minutes) 7 Resistance 3 Seat Position 14-12 Therapeutic Exercises Prone Exercises 3 Prone Exercise Name Side bend stretch Reps/Minutes x 15 sh x 3 reps each side Sidelying Exercises 2 Sidelying Exercise Name Clamshell Side left Resistance Lv2 Standing Exercises 3 Standing Exercise Name Steady lunge with hand support Side bilateral Reps/Minutes x 15 reps Comments to cont. stretch lunge 1 Standing Exercise Name Side step squat Side bilateral Equipment Used GTB Reps/Minutes x 2 lines Comments cues knee s not pass toes, not to use arm to pull up Other Exercises 3 Other Exercise Name Stairs single step foot reaching Reps/Minutes x 5 reps x 15SH 2 Other Exercise Name Steps hamstring and calf stretch Reps/Minutes x 15SH x 2 reps 1 Other Exercise Name Half knee ling stretch Side bilateral Comments Rails to hol and foam to knee Manual Therapy Treatment Soft Tissue Mobilization 1 Body Location Hip ext rotators, L Mobilization Type Myofascial Release Rolling Sustained Pressure Trigger Point Release Joint Mobilizations 1 Joint Hip Direction post/inf Grade III Body Position Supine PT-OP-R Modalities Start: 04/15/18 13:17 Freq: Status: Active Protocol: Document 07/28/18 09:04 EA (Rec: 07/28/18 09:50 EA [id number]) Electric Stimulation Electric Stimulation Interferential Current (IFC) Body Location left upper gluteal Duration (Minutes) 15 Intensity 15 Combined With Heat/Cold Hot Pack PT-OP-T Assessment and Plan Start: 04/15/18 13:17 Freq: Status: Active Protocol: Document 08/05/18 07:35 EA (Rec: 08/05/18 09:01 EA [id number]) Physical Therapy Assessment Assessment Summary Assessment Pt tolerated treatment with improved hip ROM; discomfort still noted at hip flexion beyond 90 deg. Physical Therapy Plan Next Visit Focus/Plan Next Note Type Treatment Note Next Visit Plan Hip ROM, manual PT to decrease pain. Advance as tolerated
--- NOTE | 2018-08-11 11:12 | PT.OTN ---
Current Diagnoses Pain in left hip (08/11/18) Physical Therapy Treatment Note PT-OP-A Visit Information Start: 04/15/18 13:17 Freq: Status: Active Protocol: Document 08/11/18 07:36 EA (Rec: 08/11/18 08:55 EA [id number]) Out-Patient Physical Therapy Visit Information Visit Information Visit Type Treatment Note Visit Start Time 07:30 Visit Stop Time 08:15 Total Visit Minutes 40 Visit Number 16 PT-OP-B Current Condition Start: 04/15/18 13:17 Freq: Status: Active Protocol: Document 04/15/18 13:20 EA (Rec: 04/15/18 13:42 EA [id number]) Current Condition History of Current Condition Onset Date 5 years ago Current Complaints Left hip pain with stiffness History of Current Condition Present condition started 5 year ago which has been treated 1 year ago with good results but not fully recovered. Pt reports that he does not want to undergo surgery though he was diagnosed with hip OA few years ago; states c/c is difficulty with tieng shoes in seated position and difficulty of getting up from the floor when kneeling as he feels joint stiffness always stopped him. Patient denies hip injury in the past or hip rsurgery. Patient went to his doctor weeks ago and was then referred to PT for further evaluation. Radiographs taken months ago which according to patient that the left hip joint has significant OA. Prior Treatments and Tests Formal PT year ago with same condition Chiropractor ongoing for back problem Future Testing and Treatments Planned None at this time. Treatment Goals Patient/Caregiver Goals 1. be able to bend and tie shoe laces and put the sucks 2. decrease left hip discomfort and stiffness Prior Functional Status Baseline Function- ADL's Independent Baseline Function- Mobility Independent Baseline Function- Recreation/Hobbies Fishing, crabbing, camping with mild difficulty Current Functional Impairments (Reported) Functional Limitations- ADL's Limitation with bending and left foot shoe donning Functional Limitations- Mobility/Gait Indep with no mobility support with moderate limp. Functional Limitations- Recreation/ Fishing, crabbing, camping Hobbies with mild difficulty Personal Factors Other Personal Factors That May Effect Chronicity of the condition Therapy/Recovery PT-OP-C Subjective Start: 04/15/18 13:17 Freq: Status: Active Protocol: Document 08/11/18 07:36 EA (Rec: 08/11/18 08:55 EA [id number]) OP-PT Subjective Patient Comments Patient Comments Pt reports consistent with HEP and planning to increase walking activities. Reports he is feeling m,uch improve at this time. PT-OP-F Manual Assessment Start: 04/15/18 13:17 Freq: Status: Active Protocol: Document 07/21/18 17:48 EA (Rec: 07/22/18 12:49 EA [id number]) Manual Assessments Soft Tissue Assessment Soft Tissue Mobility Assessment Hypomobile left hip joint Tightness to both hamstring and anterior hip muscles Joint Mobility Assessment Joint Mobility Assessment LOM due to possible soft tissuue tightness on ant hip region and tightness to left hip external rotators PT-OP-G Mobility & Gait Start: 04/15/18 13:17 Freq: Status: Active Protocol: Document 04/15/18 13:20 EA (Rec: 04/15/18 13:42 EA [id number]) OP Gait Assessment Gait Deviations General Gait Pattern Antalgic Stair Climbing Evaluation Comments Stair Climbing Comments Decrease left foot stance time . PT-OP-J Posture/Palpation/Skin Start: 04/15/18 13:17 Freq: Status: Active Protocol: Document 06/12/18 09:30 EA (Rec: 06/12/18 09:46 EA [id number]) Palpation Assessment Location One Palpation Location Right ant hip and upper gluteals Palpation Findings Soft Tissue Tightness Tenderness PT-OP-K Range of Motion Start: 04/15/18 13:17 Freq: Status: Active Protocol: Document 06/12/18 13:32 EA (Rec: 06/12/18 13:33 EA [id number]) Hip Goniometric Range of Motion Hip Measured in Degrees Left Active Testing Position Supine Flexion w/Knee Flexed 90 Extension 10 Abduction 25 Internal Rotation 15 External Rotation 35 Right Active Testing Position Supine Flexion w/Knee Flexed 95 Extension 10 Abduction 25 Internal Rotation 32 External Rotation 40 Hip ROM Limitations Hip ROM Limitations Soft Tissue Tightness Pain PT-OP-L Special Tests Start: 04/15/18 13:17 Freq: Status: Active Protocol: Document 06/12/18 09:30 EA (Rec: 06/12/18 09:46 EA [id number]) Special Tests Hip Special Tests Piriformis Test Results - Scour Test Test Results NOT SENSITIVE Lisa's Test Test Results + PAKO Test Results + PT-OP-M Strength Start: 04/15/18 13:17 Freq: Status: Active Protocol: Document 06/12/18 13:30 EA (Rec: 06/12/18 13:31 EA [id number]) Hip Strength Hip Manual Muscle Testing Left Flexion (L2) 5 Normal Extension (S1) 5 Normal Abduction 4- Good- External Rotation 4+ Good+ Internal Rotation 4 Good Right Flexion (L2) 5 Normal Extension (S1) 5 Normal Abduction 5 Normal Adduction 5 Normal External Rotation 4+ Good+ Internal Rotation 4 Good PT-OP-Q Treatments Start: 04/15/18 13:17 Freq: Status: Active Protocol: Document 08/11/18 07:36 EA (Rec: 08/11/18 08:55 EA [id number]) Cardio Equipment Recumbent Stepper (Sci-Fit) Duration (Minutes) 6 Resistance 3 Seat Position 14-12 Gym Equipment Shuttle Recovery Unilateral Squats Details full hip flexion range or as tolerated Resistance 50 # Shuttle Recovery Platform Stable Reps/Time x 15 x 3 sets Therapeutic Exercises Supine Exercises 5 Supine Exercise Name edge table rectus femoris stretch 3 Supine Exercise Name hip abd/add AROM Side left Resistance Lv2 Reps/Minutes x15 reps x 2 2 Supine Exercise Name figure of 4 stretch Side left Reps/Minutes x30sh x 2 Comments Passive 1 Supine Exercise Name Hamstring/ hip rotators, IT band, hip flexorsstertch Side left Reps/Minutes x 30SH x 2 Comments passive and active Prone Exercises 3 Prone Exercise Name Side bend stretch Reps/Minutes x 15 sh x 3 reps each side Sidelying Exercises 2 Sidelying Exercise Name Clamshell Side left Resistance Lv3 Sitting Exercises 1 Sitting Exercise Name low back fwd bending stretch. Reps/Minutes x 15sh x 3 reps Comments add rotation: passive Standing Exercises 3 Standing Exercise Name FWD lunge with hand support Side bilateral Reps/Minutes x 15 reps Comments to cont. stretch lunge Other Exercises 3 Other Exercise Name Stairs single step foot reaching Reps/Minutes x 5 reps x 15SH 2 Other Exercise Name Steps hamstring and calf stretch Reps/Minutes x 15SH x 2 reps 1 Other Exercise Name Half knee ling stretch Side bilateral Comments Rails to hol and foam to knee Manual Therapy Treatment Soft Tissue Mobilization 1 Body Location Hip ext rotators, L Mobilization Type Myofascial Release Rolling Sustained Pressure Trigger Point Release Joint Mobilizations 1 Joint Hip Direction post/inf Grade III Body Position Supine PT-OP-R Modalities Start: 04/15/18 13:17 Freq: Status: Active Protocol: Document 07/28/18 09:04 EA (Rec: 07/28/18 09:50 EA [id number]) Electric Stimulation Electric Stimulation Interferential Current (IFC) Body Location left upper gluteal Duration (Minutes) 15 Intensity 15 Combined With Heat/Cold Hot Pack PT-OP-T Assessment and Plan Start: 04/15/18 13:17 Freq: Status: Active Protocol: Document 08/11/18 07:36 EA (Rec: 08/11/18 08:55 EA [id number]) Physical Therapy Assessment Assessment Summary Assessment Improved hip flexion ROM after manual stretch. Patient cont to progress Physical Therapy Plan Next Visit Focus/Plan Next Note Type Treatment Note Next Visit Plan Hip ROM, manual PT to decrease pain. Advance as tolerated
--- NOTE | 2018-08-20 17:07 | PT.OTN ---
Current Diagnoses Pain in left hip (08/20/18) Physical Therapy Treatment Note PT-OP-A Visit Information Start: 04/15/18 13:17 Freq: Status: Active Protocol: Document 08/20/18 16:58 EA (Rec: 08/20/18 17:06 EA [id number]) Out-Patient Physical Therapy Visit Information Visit Information Visit Type Treatment Note Visit Start Time 16:00 Visit Stop Time 16:45 Visit Number 17 PT-OP-B Current Condition Start: 04/15/18 13:17 Freq: Status: Active Protocol: Document 04/15/18 13:20 EA (Rec: 04/15/18 13:42 EA [id number]) Current Condition History of Current Condition Onset Date 5 years ago Current Complaints Left hip pain with stiffness History of Current Condition Present condition started 5 year ago which has been treated 1 year ago with good results but not fully recovered. Pt reports that he does not want to undergo surgery though he was diagnosed with hip OA few years ago; states c/c is difficulty with tieng shoes in seated position and difficulty of getting up from the floor when kneeling as he feels joint stiffness always stopped him. Patient denies hip injury in the past or hip rsurgery. Patient went to his doctor weeks ago and was then referred to PT for further evaluation. Radiographs taken months ago which according to patient that the left hip joint has significant OA. Prior Treatments and Tests Formal PT year ago with same condition Chiropractor ongoing for back problem Future Testing and Treatments Planned None at this time. Treatment Goals Patient/Caregiver Goals 1. be able to bend and tie shoe laces and put the sucks 2. decrease left hip discomfort and stiffness Prior Functional Status Baseline Function- ADL's Independent Baseline Function- Mobility Independent Baseline Function- Recreation/Hobbies Fishing, crabbing, camping with mild difficulty Current Functional Impairments (Reported) Functional Limitations- ADL's Limitation with bending and left foot shoe donning Functional Limitations- Mobility/Gait Indep with no mobility support with moderate limp. Functional Limitations- Recreation/ Fishing, crabbing, camping Hobbies with mild difficulty Personal Factors Other Personal Factors That May Effect Chronicity of the condition Therapy/Recovery PT-OP-C Subjective Start: 04/15/18 13:17 Freq: Status: Active Protocol: Document 08/20/18 16:58 EA (Rec: 08/20/18 17:06 EA [id number]) OP-PT Subjective Patient Comments Patient Comments Pt reports able to perform deep squat position for few minutes; states he was not able to perform this prior to PT eval. Patient Reported Progress Improving PT-OP-F Manual Assessment Start: 04/15/18 13:17 Freq: Status: Active Protocol: Document 07/21/18 17:48 EA (Rec: 07/22/18 12:49 EA [id number]) Manual Assessments Soft Tissue Assessment Soft Tissue Mobility Assessment Hypomobile left hip joint Tightness to both hamstring and anterior hip muscles Joint Mobility Assessment Joint Mobility Assessment LOM due to possible soft tissuue tightness on ant hip region and tightness to left hip external rotators PT-OP-G Mobility & Gait Start: 04/15/18 13:17 Freq: Status: Active Protocol: Document 04/15/18 13:20 EA (Rec: 04/15/18 13:42 EA [id number]) OP Gait Assessment Gait Deviations General Gait Pattern Antalgic Stair Climbing Evaluation Comments Stair Climbing Comments Decrease left foot stance time . PT-OP-J Posture/Palpation/Skin Start: 04/15/18 13:17 Freq: Status: Active Protocol: Document 06/12/18 09:30 EA (Rec: 06/12/18 09:46 EA [id number]) Palpation Assessment Location One Palpation Location Right ant hip and upper gluteals Palpation Findings Soft Tissue Tightness Tenderness PT-OP-K Range of Motion Start: 04/15/18 13:17 Freq: Status: Active Protocol: Document 06/12/18 13:32 EA (Rec: 06/12/18 13:33 EA [id number]) Hip Goniometric Range of Motion Hip Measured in Degrees Left Active Testing Position Supine Flexion w/Knee Flexed 90 Extension 10 Abduction 25 Internal Rotation 15 External Rotation 35 Right Active Testing Position Supine Flexion w/Knee Flexed 95 Extension 10 Abduction 25 Internal Rotation 32 External Rotation 40 Hip ROM Limitations Hip ROM Limitations Soft Tissue Tightness Pain PT-OP-L Special Tests Start: 04/15/18 13:17 Freq: Status: Active Protocol: Document 06/12/18 09:30 EA (Rec: 06/12/18 09:46 EA [id number]) Special Tests Hip Special Tests Piriformis Test Results - Scour Test Test Results NOT SENSITIVE Lisa's Test Test Results + PAKO Test Results + PT-OP-M Strength Start: 04/15/18 13:17 Freq: Status: Active Protocol: Document 06/12/18 13:30 EA (Rec: 06/12/18 13:31 EA [id number]) Hip Strength Hip Manual Muscle Testing Left Flexion (L2) 5 Normal Extension (S1) 5 Normal Abduction 4- Good- External Rotation 4+ Good+ Internal Rotation 4 Good Right Flexion (L2) 5 Normal Extension (S1) 5 Normal Abduction 5 Normal Adduction 5 Normal External Rotation 4+ Good+ Internal Rotation 4 Good PT-OP-Q Treatments Start: 04/15/18 13:17 Freq: Status: Active Protocol: Document 08/20/18 16:58 EA (Rec: 08/20/18 17:06 EA [id number]) Cardio Equipment Recumbent Stepper (Sci-Fit) Duration (Minutes) 6 Resistance 3 Seat Position 14-12 Gym Equipment Shuttle Recovery Unilateral Squats Details full hip flexion range or as tolerated Resistance 50 # Shuttle Recovery Platform Stable Reps/Time x 15 x 3 sets Therapeutic Exercises Supine Exercises 5 Supine Exercise Name edge table rectus femoris stretch 2 Supine Exercise Name figure of 4 stretch Side left Reps/Minutes x30sh x 2 Comments Passive 1 Supine Exercise Name Hamstring/ hip rotators, IT band, hip flexorsstertch Side left Reps/Minutes x 30SH x 2 Comments passive and active Prone Exercises 3 Prone Exercise Name Side bend stretch Reps/Minutes x 15 sh x 3 reps each side Sitting Exercises 1 Sitting Exercise Name low back fwd bending stretch. Reps/Minutes x 15sh x 3 reps Comments add rotation: passive Other Exercises 3 Other Exercise Name Stairs single step foot reaching Reps/Minutes x 5 reps x 15SH 1 Other Exercise Name Half knee ling stretch Side bilateral Comments Rails to hol and foam to knee Manual Therapy Treatment Soft Tissue Mobilization 1 Body Location Hip ext rotators, L Mobilization Type Myofascial Release Rolling Sustained Pressure Trigger Point Release Joint Mobilizations 1 Joint Hip Direction post/inf Grade III Body Position Supine Manual Techniques 1 Type CR-passive stretch Reps/Duration x 5 reps x 15 SH each direction Comments Left Hip extnsors, flexors, ERotators. PT-OP-R Modalities Start: 04/15/18 13:17 Freq: Status: Active Protocol: Document 07/28/18 09:04 EA (Rec: 07/28/18 09:50 EA [id number]) Electric Stimulation Electric Stimulation Interferential Current (IFC) Body Location left upper gluteal Duration (Minutes) 15 Intensity 15 Combined With Heat/Cold Hot Pack PT-OP-T Assessment and Plan Start: 04/15/18 13:17 Freq: Status: Active Protocol: Document 08/20/18 16:58 EA (Rec: 08/20/18 17:06 EA [id number]) Physical Therapy Assessment Assessment Summary Assessment Patient tolerated treatment with much improved hip flexion range after manual stretch. Patient is now able to reach left foot in fwd bending position. Physical Therapy Plan Next Visit Focus/Plan Next Note Type Treatment Note
--- NOTE | 2018-08-26 16:49 | PT.OTN ---
Current Diagnoses Pain in left hip (08/26/18) Physical Therapy Treatment Note PT-OP-A Visit Information Start: 04/15/18 13:17 Freq: Status: Active Protocol: Document 08/26/18 15:11 EA (Rec: 08/26/18 15:15 EA [id number]) Out-Patient Physical Therapy Visit Information Visit Information Visit Type Treatment Note Visit Start Time 02:30 Visit Stop Time 03:15 Visit Number 18 PT-OP-B Current Condition Start: 04/15/18 13:17 Freq: Status: Active Protocol: Document 04/15/18 13:20 EA (Rec: 04/15/18 13:42 EA [id number]) Current Condition History of Current Condition Onset Date 5 years ago Current Complaints Left hip pain with stiffness History of Current Condition Present condition started 5 year ago which has been treated 1 year ago with good results but not fully recovered. Pt reports that he does not want to undergo surgery though he was diagnosed with hip OA few years ago; states c/c is difficulty with tieng shoes in seated position and difficulty of getting up from the floor when kneeling as he feels joint stiffness always stopped him. Patient denies hip injury in the past or hip rsurgery. Patient went to his doctor weeks ago and was then referred to PT for further evaluation. Radiographs taken months ago which according to patient that the left hip joint has significant OA. Prior Treatments and Tests Formal PT year ago with same condition Chiropractor ongoing for back problem Future Testing and Treatments Planned None at this time. Treatment Goals Patient/Caregiver Goals 1. be able to bend and tie shoe laces and put the sucks 2. decrease left hip discomfort and stiffness Prior Functional Status Baseline Function- ADL's Independent Baseline Function- Mobility Independent Baseline Function- Recreation/Hobbies Fishing, crabbing, camping with mild difficulty Current Functional Impairments (Reported) Functional Limitations- ADL's Limitation with bending and left foot shoe donning Functional Limitations- Mobility/Gait Indep with no mobility support with moderate limp. Functional Limitations- Recreation/ Fishing, crabbing, camping Hobbies with mild difficulty Personal Factors Other Personal Factors That May Effect Chronicity of the condition Therapy/Recovery PT-OP-C Subjective Start: 04/15/18 13:17 Freq: Status: Active Protocol: Document 08/26/18 15:11 EA (Rec: 08/26/18 15:15 EA [id number]) OP-PT Subjective Patient Comments Patient Comments Pt reports left hip is sore from last session; states it is much feeling better at this time. PT-OP-F Manual Assessment Start: 04/15/18 13:17 Freq: Status: Active Protocol: Document 07/21/18 17:48 EA (Rec: 07/22/18 12:49 EA [id number]) Manual Assessments Soft Tissue Assessment Soft Tissue Mobility Assessment Hypomobile left hip joint Tightness to both hamstring and anterior hip muscles Joint Mobility Assessment Joint Mobility Assessment LOM due to possible soft tissuue tightness on ant hip region and tightness to left hip external rotators PT-OP-G Mobility & Gait Start: 04/15/18 13:17 Freq: Status: Active Protocol: Document 04/15/18 13:20 EA (Rec: 04/15/18 13:42 EA [id number]) OP Gait Assessment Gait Deviations General Gait Pattern Antalgic Stair Climbing Evaluation Comments Stair Climbing Comments Decrease left foot stance time . PT-OP-J Posture/Palpation/Skin Start: 04/15/18 13:17 Freq: Status: Active Protocol: Document 06/12/18 09:30 EA (Rec: 06/12/18 09:46 EA [id number]) Palpation Assessment Location One Palpation Location Right ant hip and upper gluteals Palpation Findings Soft Tissue Tightness Tenderness PT-OP-K Range of Motion Start: 04/15/18 13:17 Freq: Status: Active Protocol: Document 06/12/18 13:32 EA (Rec: 06/12/18 13:33 EA [id number]) Hip Goniometric Range of Motion Hip Measured in Degrees Left Active Testing Position Supine Flexion w/Knee Flexed 90 Extension 10 Abduction 25 Internal Rotation 15 External Rotation 35 Right Active Testing Position Supine Flexion w/Knee Flexed 95 Extension 10 Abduction 25 Internal Rotation 32 External Rotation 40 Hip ROM Limitations Hip ROM Limitations Soft Tissue Tightness Pain PT-OP-L Special Tests Start: 04/15/18 13:17 Freq: Status: Active Protocol: Document 06/12/18 09:30 EA (Rec: 06/12/18 09:46 EA [id number]) Special Tests Hip Special Tests Piriformis Test Results - Scour Test Test Results NOT SENSITIVE Lisa's Test Test Results + PAKO Test Results + PT-OP-M Strength Start: 04/15/18 13:17 Freq: Status: Active Protocol: Document 06/12/18 13:30 EA (Rec: 06/12/18 13:31 EA [id number]) Hip Strength Hip Manual Muscle Testing Left Flexion (L2) 5 Normal Extension (S1) 5 Normal Abduction 4- Good- External Rotation 4+ Good+ Internal Rotation 4 Good Right Flexion (L2) 5 Normal Extension (S1) 5 Normal Abduction 5 Normal Adduction 5 Normal External Rotation 4+ Good+ Internal Rotation 4 Good PT-OP-Q Treatments Start: 04/15/18 13:17 Freq: Status: Active Protocol: Document 08/26/18 15:11 EA (Rec: 08/26/18 15:15 EA [id number]) Cardio Equipment Recumbent Stepper (Sci-Fit) Duration (Minutes) 5 Resistance 3 Seat Position 14-12 Gym Equipment Shuttle Recovery Unilateral Squats Details full hip flexion range or as tolerated Resistance 50 # Shuttle Recovery Platform Stable Reps/Time x 15 x 3 sets Therapeutic Exercises Supine Exercises 5 Supine Exercise Name edge table rectus femoris stretch Side bilateral 2 Supine Exercise Name figure of 4 stretch Side left Reps/Minutes x30sh x 2 Comments Passive 1 Supine Exercise Name Hamstring/ hip rotators, IT band, hip flexorsstertch Side left Reps/Minutes x 30SH x 2 Comments passive and active Prone Exercises 3 Prone Exercise Name Side bend stretch Reps/Minutes x 15 sh x 3 reps each side Sitting Exercises 1 Sitting Exercise Name low back fwd bending stretch. Reps/Minutes x 15sh x 3 reps Comments add rotation: passive Standing Exercises 3 Standing Exercise Name FWD lunge with hand support Side bilateral Reps/Minutes x 15 reps Comments to cont. stretch lunge Other Exercises 3 Other Exercise Name Stairs single step foot reaching Reps/Minutes x 5 reps x 15SH 1 Other Exercise Name Half knee ling stretch Side bilateral Comments Rails to hol and foam to knee Manual Therapy Treatment Soft Tissue Mobilization 1 Body Location Hip ext rotators, L Mobilization Type Myofascial Release Rolling Sustained Pressure Trigger Point Release Joint Mobilizations 1 Joint Hip Direction post/inf Grade III Body Position Supine Manual Techniques 1 Type CR-passive stretch Reps/Duration x 5 reps x 15 SH each direction Comments Left Hip extnsors, flexors, ERotators. PT-OP-R Modalities Start: 04/15/18 13:17 Freq: Status: Active Protocol: Document 08/26/18 15:15 EA (Rec: 08/26/18 15:16 EA [id number]) Hot Pack/Cold Pack Treatment Hot Pack Location left low back,hip ER Patient Position Sidelying Treatment Duration (minutes) 15 Patient Tolerance Good PT-OP-T Assessment and Plan Start: 04/15/18 13:17 Freq: Status: Active Protocol: Document 08/26/18 15:11 EA (Rec: 08/26/18 15:15 EA [id number]) Physical Therapy Assessment Assessment Summary Assessment Pt is now able to tie shoe on left side but with discomfort after. Overall patient is progressing well. Physical Therapy Plan Next Visit Focus/Plan Next Note Type Treatment Note
--- NOTE | 2018-09-01 16:56 | PT.OTN ---
Current Diagnoses Pain in left hip (09/01/18) Physical Therapy Treatment Note PT-OP-A Visit Information Start: 04/15/18 13:17 Freq: Status: Active Protocol: Document 09/01/18 16:45 EA (Rec: 09/01/18 16:56 EA [id number]) Out-Patient Physical Therapy Visit Information Visit Information Visit Type Treatment Note Visit Start Time 16:00 Visit Stop Time 16:40 Visit Number 19 PT-OP-B Current Condition Start: 04/15/18 13:17 Freq: Status: Active Protocol: Document 04/15/18 13:20 EA (Rec: 04/15/18 13:42 EA [id number]) Current Condition History of Current Condition Onset Date 5 years ago Current Complaints Left hip pain with stiffness History of Current Condition Present condition started 5 year ago which has been treated 1 year ago with good results but not fully recovered. Pt reports that he does not want to undergo surgery though he was diagnosed with hip OA few years ago; states c/c is difficulty with tieng shoes in seated position and difficulty of getting up from the floor when kneeling as he feels joint stiffness always stopped him. Patient denies hip injury in the past or hip rsurgery. Patient went to his doctor weeks ago and was then referred to PT for further evaluation. Radiographs taken months ago which according to patient that the left hip joint has significant OA. Prior Treatments and Tests Formal PT year ago with same condition Chiropractor ongoing for back problem Future Testing and Treatments Planned None at this time. Treatment Goals Patient/Caregiver Goals 1. be able to bend and tie shoe laces and put the sucks 2. decrease left hip discomfort and stiffness Prior Functional Status Baseline Function- ADL's Independent Baseline Function- Mobility Independent Baseline Function- Recreation/Hobbies Fishing, crabbing, camping with mild difficulty Current Functional Impairments (Reported) Functional Limitations- ADL's Limitation with bending and left foot shoe donning Functional Limitations- Mobility/Gait Indep with no mobility support with moderate limp. Functional Limitations- Recreation/ Fishing, crabbing, camping Hobbies with mild difficulty Personal Factors Other Personal Factors That May Effect Chronicity of the condition Therapy/Recovery PT-OP-C Subjective Start: 04/15/18 13:17 Freq: Status: Active Protocol: Document 09/01/18 16:45 EA (Rec: 09/01/18 16:56 EA [id number]) OP-PT Subjective Patient Comments Patient Comments Pt reports that his hip ROm is improving but pain in the last three session is not improving; states he feels that everything is loosening up. Patient Reported Progress Improving PT-OP-F Manual Assessment Start: 04/15/18 13:17 Freq: Status: Active Protocol: Document 07/21/18 17:48 EA (Rec: 07/22/18 12:49 EA [id number]) Manual Assessments Soft Tissue Assessment Soft Tissue Mobility Assessment Hypomobile left hip joint Tightness to both hamstring and anterior hip muscles Joint Mobility Assessment Joint Mobility Assessment LOM due to possible soft tissuue tightness on ant hip region and tightness to left hip external rotators PT-OP-G Mobility & Gait Start: 04/15/18 13:17 Freq: Status: Active Protocol: Document 04/15/18 13:20 EA (Rec: 04/15/18 13:42 EA [id number]) OP Gait Assessment Gait Deviations General Gait Pattern Antalgic Stair Climbing Evaluation Comments Stair Climbing Comments Decrease left foot stance time . PT-OP-J Posture/Palpation/Skin Start: 04/15/18 13:17 Freq: Status: Active Protocol: Document 06/12/18 09:30 EA (Rec: 06/12/18 09:46 EA [id number]) Palpation Assessment Location One Palpation Location Right ant hip and upper gluteals Palpation Findings Soft Tissue Tightness Tenderness PT-OP-K Range of Motion Start: 04/15/18 13:17 Freq: Status: Active Protocol: Document 06/12/18 13:32 EA (Rec: 06/12/18 13:33 EA [id number]) Hip Goniometric Range of Motion Hip Measured in Degrees Left Active Testing Position Supine Flexion w/Knee Flexed 90 Extension 10 Abduction 25 Internal Rotation 15 External Rotation 35 Right Active Testing Position Supine Flexion w/Knee Flexed 95 Extension 10 Abduction 25 Internal Rotation 32 External Rotation 40 Hip ROM Limitations Hip ROM Limitations Soft Tissue Tightness Pain PT-OP-L Special Tests Start: 04/15/18 13:17 Freq: Status: Active Protocol: Document 06/12/18 09:30 EA (Rec: 06/12/18 09:46 EA [id number]) Special Tests Hip Special Tests Piriformis Test Results - Scour Test Test Results NOT SENSITIVE Lisa's Test Test Results + PAKO Test Results + PT-OP-M Strength Start: 04/15/18 13:17 Freq: Status: Active Protocol: Document 06/12/18 13:30 EA (Rec: 06/12/18 13:31 EA [id number]) Hip Strength Hip Manual Muscle Testing Left Flexion (L2) 5 Normal Extension (S1) 5 Normal Abduction 4- Good- External Rotation 4+ Good+ Internal Rotation 4 Good Right Flexion (L2) 5 Normal Extension (S1) 5 Normal Abduction 5 Normal Adduction 5 Normal External Rotation 4+ Good+ Internal Rotation 4 Good PT-OP-Q Treatments Start: 04/15/18 13:17 Freq: Status: Active Protocol: Document 09/01/18 16:45 EA (Rec: 09/01/18 16:56 EA [id number]) Cardio Equipment Recumbent Stepper (Sci-Fit) Duration (Minutes) 5 Resistance 3 Seat Position 14-12 Therapeutic Exercises Supine Exercises 5 Supine Exercise Name edge table rectus femoris stretch Side bilateral 4 Supine Exercise Name SLR Side bilateral Resistance 5lbs Reps/Minutes x 15 reps 3 Supine Exercise Name hip abd/add AROM Side left Resistance Lv2 Reps/Minutes x15 reps x 2 2 Supine Exercise Name figure of 4 stretch Side left Reps/Minutes x30sh x 2 Comments Passive 1 Supine Exercise Name Hamstring/ hip rotators, IT band, hip flexorsstertch Side left Reps/Minutes x 30SH x 2 Comments passive and active Prone Exercises 3 Prone Exercise Name Side bend stretch Reps/Minutes x 15 sh x 3 reps each side Sitting Exercises 1 Sitting Exercise Name low back fwd bending stretch. Reps/Minutes x 15sh x 3 reps Comments add rotation: passive Other Exercises 1 Other Exercise Name Half kneeling stretch Side bilateral Comments Rails to hol and foam to knee Manual Therapy Treatment Soft Tissue Mobilization 1 Body Location Hip ext rotators, L Mobilization Type Myofascial Release Rolling Sustained Pressure Trigger Point Release Intensity/Depth Deep Body Position Supine Joint Mobilizations 1 Joint Hip Direction post/inf Grade III Body Position Supine Manual Techniques 1 Type CR-passive stretch Reps/Duration x 5 reps x 15 SH each direction Comments Left Hip extnsors, flexors, ERotators. PT-OP-R Modalities Start: 04/15/18 13:17 Freq: Status: Active Protocol: Document 08/26/18 15:15 EA (Rec: 08/26/18 15:16 EA [id number]) Hot Pack/Cold Pack Treatment Hot Pack Location left low back,hip ER Patient Position Sidelying Treatment Duration (minutes) 15 Patient Tolerance Good PT-OP-T Assessment and Plan Start: 04/15/18 13:17 Freq: Status: Active Protocol: Document 09/01/18 16:45 EA (Rec: 09/01/18 16:56 EA [id number]) Physical Therapy Assessment Assessment Summary Assessment Tolerated treatment well. Pt continue to progress. Physical Therapy Plan Next Visit Focus/Plan Next Note Type Progress Note
--- NOTE | 2018-09-15 17:25 | PT.OTRE ---
Current Diagnoses Pain in left hip (09/15/18) Provider Visit Care Team Role Provider Type Leticia Arias MD Attending Provider Non-Staff Family Provider Primary Care Provider Specialty: Medical Address: [address] [place] [address], [id number] Email: Physical Therapy Re-Evaluation PT-OP-A Visit Information Start: 04/15/18 13:17 Freq: Status: Active Protocol: Document 09/03/18 09:48 EA (Rec: 09/03/18 11:14 EA [id number]) Out-Patient Physical Therapy Visit Information Visit Information Visit Type Treatment Note Visit Start Time 09:45 Visit Stop Time 10:30 Visit Number 20 PT-OP-B Current Condition Start: 04/15/18 13:17 Freq: Status: Active Protocol: Document 04/15/18 13:20 EA (Rec: 04/15/18 13:42 EA [id number]) Current Condition History of Current Condition Onset Date 5 years ago Current Complaints Left hip pain with stiffness History of Current Condition Present condition started 5 year ago which has been treated 1 year ago with good results but not fully recovered. Pt reports that he does not want to undergo surgery though he was diagnosed with hip OA few years ago; states c/c is difficulty with tieng shoes in seated position and difficulty of getting up from the floor when kneeling as he feels joint stiffness always stopped him. Patient denies hip injury in the past or hip rsurgery. Patient went to his doctor weeks ago and was then referred to PT for further evaluation. Radiographs taken months ago which according to patient that the left hip joint has significant OA. Prior Treatments and Tests Formal PT year ago with same condition Chiropractor ongoing for back problem Future Testing and Treatments Planned None at this time. Treatment Goals Patient/Caregiver Goals 1. be able to bend and tie shoe laces and put the sucks 2. decrease left hip discomfort and stiffness Prior Functional Status Baseline Function- ADL's Independent Baseline Function- Mobility Independent Baseline Function- Recreation/Hobbies Fishing, crabbing, camping with mild difficulty Current Functional Impairments (Reported) Functional Limitations- ADL's Limitation with bending and left foot shoe donning Functional Limitations- Mobility/Gait Indep with no mobility support with moderate limp. Functional Limitations- Recreation/ Fishing, crabbing, camping Hobbies with mild difficulty Personal Factors Other Personal Factors That May Effect Chronicity of the condition Therapy/Recovery PT-OP-C Subjective Start: 04/15/18 13:17 Freq: Status: Active Protocol: Document 09/15/18 17:24 EA (Rec: 09/15/18 17:30 EA [id number]) OP-PT Subjective Patient Comments Patient Comments Pt reports that he feels his function is much improved as he is able now to kneel down and sit on a low chair with less difficulty; states he is much very happy he accomplished tieng the shoelace in sitting. Patient Reported Progress Improving PT-OP-F Manual Assessment Start: 04/15/18 13:17 Freq: Status: Active Protocol: Document 09/17/18 11:04 EA (Rec: 09/17/18 11:06 EA [id number]) Manual Assessments Soft Tissue Assessment Soft Tissue Mobility Assessment Hypomobile left hip joint Tightness to both hamstring and anterior hip muscles PT-OP-G Mobility & Gait Start: 04/15/18 13:17 Freq: Status: Active Protocol: Document 04/15/18 13:20 EA (Rec: 04/15/18 13:42 EA [id number]) OP Gait Assessment Gait Deviations General Gait Pattern Antalgic Stair Climbing Evaluation Comments Stair Climbing Comments Decrease left foot stance time . PT-OP-J Posture/Palpation/Skin Start: 04/15/18 13:17 Freq: Status: Active Protocol: Document 06/12/18 09:30 EA (Rec: 06/12/18 09:46 EA [id number]) Palpation Assessment Location One Palpation Location Right ant hip and upper gluteals Palpation Findings Soft Tissue Tightness Tenderness PT-OP-K Range of Motion Start: 04/15/18 13:17 Freq: Status: Active Protocol: Document 09/15/18 11:06 EA (Rec: 09/17/18 11:07 EA [id number]) Hip Goniometric Range of Motion Hip Measured in Degrees Left Active Testing Position Supine Flexion w/Knee Flexed 100 Extension 10 Abduction 25 Internal Rotation 25 External Rotation 20 Right Active Flexion w/Knee Flexed 110 Extension 10 Abduction 25 Internal Rotation 32 External Rotation 40 PT-OP-L Special Tests Start: 04/15/18 13:17 Freq: Status: Active Protocol: Document 09/17/18 11:04 EA (Rec: 09/17/18 11:06 EA [id number]) Special Tests Hip Special Tests Piriformis Test Results - Scour Test Test Results NOT SENSITIVE Lisa's Test Test Results + PAKO Test Results + PT-OP-M Strength Start: 04/15/18 13:17 Freq: Status: Active Protocol: Document 09/03/18 16:09 EA (Rec: 09/03/18 16:10 EA [id number]) Hip Strength Hip Manual Muscle Testing Left Flexion (L2) 5 Normal Extension (S1) 5 Normal Abduction 4 Good External Rotation 4+ Good+ Internal Rotation 4 Good Right Flexion (L2) 5 Normal Extension (S1) 5 Normal Abduction 5 Normal Adduction 5 Normal External Rotation 4+ Good+ Internal Rotation 4 Good PT-OP-Q Treatments Start: 04/15/18 13:17 Freq: Status: Active Protocol: Document 09/15/18 17:24 EA (Rec: 09/15/18 17:30 EA [id number]) Cardio Equipment Recumbent Stepper (Sci-Fit) Duration (Minutes) 6 Resistance 3 Seat Position 14-12 Therapeutic Exercises Supine Exercises 4 Supine Exercise Name SLR Side bilateral Resistance 5lbs Reps/Minutes x 15 reps 2 Supine Exercise Name figure of 4 stretch Side left Reps/Minutes x30sh x 2 Comments Passive Prone Exercises 3 Prone Exercise Name Side bend stretch Reps/Minutes 30SH x 3 reps each side Sidelying Exercises 2 Sidelying Exercise Name Hip flexor stretch, ITB stretch Reps/Minutes x 15SH x 3 reps Sitting Exercises 1 Sitting Exercise Name low back fwd bending stretch. with knee bent and straight Reps/Minutes x 15sh x 3 reps Comments add rotation: passive Manual Therapy Treatment Soft Tissue Mobilization 1 Body Location Hip ext rotators, L Mobilization Type Myofascial Release Rolling Sustained Pressure Trigger Point Release Intensity/Depth Deep Body Position Supine Joint Mobilizations 1 Joint Hip Direction post/inf Grade III Body Position Supine Manual Techniques 1 Type CR-passive stretch Reps/Duration x 5 reps x 15 SH each direction Comments Left Hip extnsors, flexors, ERotators. PT-OP-R Modalities Start: 04/15/18 13:17 Freq: Status: Active Protocol: Document 08/26/18 15:15 EA (Rec: 08/26/18 15:16 EA [id number]) Hot Pack/Cold Pack Treatment Hot Pack Location left low back,hip ER Patient Position Sidelying Treatment Duration (minutes) 15 Patient Tolerance Good PT-OP-T Assessment and Plan Start: 04/15/18 13:17 Freq: Status: Active Protocol: Document 09/15/18 17:24 EA (Rec: 09/15/18 17:30 EA [id number]) Physical Therapy Assessment Goals Five Impairment Patient unable to tie left shoes in sitting position Halfway Goal (LTG) Patient will tie left shoes in sitting position with no pain LTG Duration 4 wks (slow progress due to pain back up) Four Impairment Subjective pain complaint of 2 /10 PS over left mid ant proximal thigh Halfway Goal (LTG) Patient will reports midanterior prox thigh pain of 1/10 PS LTG Duration 4 wks improving Three Impairment LEFS score of 50/80 Proposal Consultant Goal (LTG) Patient will have LEFS score of 65/80 LTG Duration 4 wks improving Two Impairment Min antalgic gait with increased left foot toe out Halfway Goal (LTG) Patient will demontrate normal gait LTG Duration 4 wks ( improving, near to normal) One Impairment Decreased Left HIP flexion ROM (0-90 deg) Halfway Goal (LTG) Patient will increase Left Hip active/passive flexion to 115deg to be able to tie shoes in squat position LTG Duration 4 wks (improving but requires few back/hip stretches to get able) Progress Towards Goals Progress Towards Goals Progressing Toward Goals Assessment Summary Assessment Patient demonstrates improved more functional tasks with decreased discomfort except with tying the shoes while leaning forward in sitting position which still requires few stretches to be able to perform. Patient will continue to benefit with skilled PT focusing with more HEP and education once a week. Physical Therapy Plan Frequency and Duration Frequency of Treatment 1x/Week Duration of Treatment 6 Plan of Care Start Date 09/15/18 Plan of Care End Date 10/27/18 Therapeutic Interventions Therapeutic Interventions Gait Training Home Exercise Program Joint Mobilizations Manual Therapy Patient/Caregiver Education Self-Care/Home Management Soft Tissue Mobilization Taping Therapeutic Exercises Modalities Cold Pack/Ice Massage Electric Stimulation Hot Packs Ultrasound Next Visit Focus/Plan Next Note Type Treatment Note
--- NOTE | 2018-09-15 17:25 | PT.OPPOC ---
Current Diagnoses Pain in left hip (09/15/18) Provider Visit Care Team Role Provider Type Leticia Arias MD Attending Provider Non-Staff Family Provider Primary Care Provider Specialty: Medical Address: [address] [place] [address], [id number] Email: Plan Of Care PT-OP-T Assessment and Plan Start: 04/15/18 13:17 Freq: Status: Active Protocol: Document 09/15/18 17:24 EA (Rec: 09/15/18 17:30 EA [id number]) Physical Therapy Assessment Goals Five Impairment Patient unable to tie left shoes in sitting position Web Marketing Assistant Goal (LTG) Patient will tie left shoes in sitting position with no pain LTG Duration 4 wks (slow progress due to pain back up) Four Impairment Subjective pain complaint of 2 /10 PS over left mid ant proximal thigh Web Marketing Assistant Goal (LTG) Patient will reports midanterior prox thigh pain of 1/10 PS LTG Duration 4 wks improving Three Impairment LEFS score of 50/80 Fdc Goal (LTG) Patient will have LEFS score of 65/80 LTG Duration 4 wks improving Two Impairment Min antalgic gait with increased left foot toe out Fdc Goal (LTG) Patient will demontrate normal gait LTG Duration 4 wks ( improving, near to normal) One Impairment Decreased Left HIP flexion ROM (0-90 deg) Web Marketing Assistant Goal (LTG) Patient will increase Left Hip active/passive flexion to 115deg to be able to tie shoes in squat position LTG Duration 4 wks (improving but requires few back/hip stretches to get able) Progress Towards Goals Progress Towards Goals Progressing Toward Goals Assessment Summary Assessment Patient demonstrates improved more functional tasks with decreased discomfort except with tying the shoes while leaning forward in sitting position which still requires few stretches to be able to perform. Patient will continue to benefit with skilled PT focusing with more HEP and education once a week. Physical Therapy Plan Frequency and Duration Frequency of Treatment 1x/Week Duration of Treatment 6 Plan of Care Start Date 09/15/18 Plan of Care End Date 10/27/18 Therapeutic Interventions Therapeutic Interventions Gait Training Home Exercise Program Joint Mobilizations Manual Therapy Patient/Caregiver Education Self-Care/Home Management Soft Tissue Mobilization Taping Therapeutic Exercises Modalities Cold Pack/Ice Massage Electric Stimulation Hot Packs Ultrasound Next Visit Focus/Plan Next Note Type Treatment Note Plan of Care Dates Plan of Care Start Date 09/15/18 Plan of Care End Date 10/27/18 Please Sign and Return: I have reviewed this Plan of Care and certify that the skilled therapy services above are required to meet the patient?s needs. Physician Signature Date Printed Name and Credentials Clinical Instructor Signature Printed Name and Credentials
--- NOTE | 2018-09-18 12:10 | PT.OTN ---
Current Diagnoses Pain in left hip (09/18/18) Physical Therapy Treatment Note PT-OP-A Visit Information Start: 04/15/18 13:17 Freq: Status: Active Protocol: Document 09/18/18 09:51 EA (Rec: 09/18/18 09:58 EA [id number]) Out-Patient Physical Therapy Visit Information Visit Information Visit Type Treatment Note Visit Start Time 09:45 Visit Stop Time 10:30 Visit Number 21 PT-OP-B Current Condition Start: 04/15/18 13:17 Freq: Status: Active Protocol: Document 04/15/18 13:20 EA (Rec: 04/15/18 13:42 EA [id number]) Current Condition History of Current Condition Onset Date 5 years ago Current Complaints Left hip pain with stiffness History of Current Condition Present condition started 5 year ago which has been treated 1 year ago with good results but not fully recovered. Pt reports that he does not want to undergo surgery though he was diagnosed with hip OA few years ago; states c/c is difficulty with tieng shoes in seated position and difficulty of getting up from the floor when kneeling as he feels joint stiffness always stopped him. Patient denies hip injury in the past or hip rsurgery. Patient went to his doctor weeks ago and was then referred to PT for further evaluation. Radiographs taken months ago which according to patient that the left hip joint has significant OA. Prior Treatments and Tests Formal PT year ago with same condition Chiropractor ongoing for back problem Future Testing and Treatments Planned None at this time. Treatment Goals Patient/Caregiver Goals 1. be able to bend and tie shoe laces and put the sucks 2. decrease left hip discomfort and stiffness Prior Functional Status Baseline Function- ADL's Independent Baseline Function- Mobility Independent Baseline Function- Recreation/Hobbies Fishing, crabbing, camping with mild difficulty Current Functional Impairments (Reported) Functional Limitations- ADL's Limitation with bending and left foot shoe donning Functional Limitations- Mobility/Gait Indep with no mobility support with moderate limp. Functional Limitations- Recreation/ Fishing, crabbing, camping Hobbies with mild difficulty Personal Factors Other Personal Factors That May Effect Chronicity of the condition Therapy/Recovery PT-OP-C Subjective Start: 04/15/18 13:17 Freq: Status: Active Protocol: Document 09/18/18 09:51 EA (Rec: 09/18/18 09:58 EA [id number]) OP-PT Subjective Patient Comments Patient Comments Pt reports consistent with HEP and he feels that hip improving a lot. Patient Reported Progress Improving PT-OP-F Manual Assessment Start: 04/15/18 13:17 Freq: Status: Active Protocol: Document 09/17/18 11:04 EA (Rec: 09/17/18 11:06 EA [id number]) Manual Assessments Soft Tissue Assessment Soft Tissue Mobility Assessment Hypomobile left hip joint Tightness to both hamstring and anterior hip muscles PT-OP-G Mobility & Gait Start: 04/15/18 13:17 Freq: Status: Active Protocol: Document 04/15/18 13:20 EA (Rec: 04/15/18 13:42 EA [id number]) OP Gait Assessment Gait Deviations General Gait Pattern Antalgic Stair Climbing Evaluation Comments Stair Climbing Comments Decrease left foot stance time . PT-OP-J Posture/Palpation/Skin Start: 04/15/18 13:17 Freq: Status: Active Protocol: Document 06/12/18 09:30 EA (Rec: 06/12/18 09:46 EA [id number]) Palpation Assessment Location One Palpation Location Right ant hip and upper gluteals Palpation Findings Soft Tissue Tightness Tenderness PT-OP-K Range of Motion Start: 04/15/18 13:17 Freq: Status: Active Protocol: Document 09/15/18 11:06 EA (Rec: 09/17/18 11:07 EA [id number]) Hip Goniometric Range of Motion Hip Measured in Degrees Left Active Testing Position Supine Flexion w/Knee Flexed 100 Extension 10 Abduction 25 Internal Rotation 25 External Rotation 20 Right Active Flexion w/Knee Flexed 110 Extension 10 Abduction 25 Internal Rotation 32 External Rotation 40 PT-OP-L Special Tests Start: 04/15/18 13:17 Freq: Status: Active Protocol: Document 09/17/18 11:04 EA (Rec: 09/17/18 11:06 EA [id number]) Special Tests Hip Special Tests Piriformis Test Results - Scour Test Test Results NOT SENSITIVE Lisa's Test Test Results + PAKO Test Results + PT-OP-M Strength Start: 04/15/18 13:17 Freq: Status: Active Protocol: Document 09/03/18 16:09 EA (Rec: 09/03/18 16:10 EA [id number]) Hip Strength Hip Manual Muscle Testing Left Flexion (L2) 5 Normal Extension (S1) 5 Normal Abduction 4 Good External Rotation 4+ Good+ Internal Rotation 4 Good Right Flexion (L2) 5 Normal Extension (S1) 5 Normal Abduction 5 Normal Adduction 5 Normal External Rotation 4+ Good+ Internal Rotation 4 Good PT-OP-Q Treatments Start: 04/15/18 13:17 Freq: Status: Active Protocol: Document 09/18/18 09:51 EA (Rec: 09/18/18 09:58 EA [id number]) Cardio Equipment Recumbent Stepper (Sci-Fit) Duration (Minutes) 5 Resistance 3 Seat Position 14-12 Therapeutic Exercises Sidelying Exercises 2 Sidelying Exercise Name Hip flexor stretch, ITB stretch Reps/Minutes x 30SH x 3 reps Sitting Exercises 1 Sitting Exercise Name low back fwd bending stretch. with knee bent and straight Reps/Minutes x 30sh x 3 reps Comments add rotation: passive Standing Exercises 3 Standing Exercise Name FWD lunge with hand support Side bilateral Reps/Minutes x 15 reps Comments to cont. stretch lunge 1 Standing Exercise Name SLS Reps/Minutes x 10SH x 3 reps each leg Comments ball pass Other Exercises 3 Other Exercise Name Stairs single step foot reaching Reps/Minutes x 5 reps x 15SH 2 Other Exercise Name Steps hamstring and calf stretch Reps/Minutes x 15SH x 2 reps 1 Other Exercise Name Half kneeling stretch Side bilateral Comments Rails to hol and foam to knee Manual Therapy Treatment Soft Tissue Mobilization 1 Body Location Hip ext rotators, L Mobilization Type Myofascial Release Rolling Sustained Pressure Trigger Point Release Intensity/Depth Deep Body Position Supine Joint Mobilizations 1 Joint Hip Direction post/inf Grade III Body Position Supine Manual Techniques 1 Type CR-passive stretch Reps/Duration x 5 reps x 15 SH each direction Comments Left Hip extnsors, flexors, ERotators. PT-OP-R Modalities Start: 04/15/18 13:17 Freq: Status: Active Protocol: Document 08/26/18 15:15 EA (Rec: 08/26/18 15:16 EA [id number]) Hot Pack/Cold Pack Treatment Hot Pack Location left low back,hip ER Patient Position Sidelying Treatment Duration (minutes) 15 Patient Tolerance Good PT-OP-T Assessment and Plan Start: 04/15/18 13:17 Freq: Status: Active Protocol: Document 09/18/18 09:51 EA (Rec: 09/18/18 09:58 EA [id number]) Physical Therapy Assessment Assessment Summary Assessment Patient tolerated treatment well. Patient to discharge next visit with HEP in place. Physical Therapy Plan Next Visit Focus/Plan Next Note Type Treatment Note Next Visit Plan Provide HEP and educate
--- NOTE | 2018-09-23 17:17 | PT.OTN ---
Current Diagnoses Pain in left hip (09/23/18) Physical Therapy Treatment Note PT-OP-A Visit Information Start: 04/15/18 13:17 Freq: Status: Active Protocol: Document 09/23/18 12:54 EA (Rec: 09/23/18 13:00 EA [id number]) Out-Patient Physical Therapy Visit Information Visit Information Visit Type Treatment Note Visit Note Discharge Visit Start Time 09:00 Visit Stop Time 09:38 Total Visit Minutes 38 Visit Number 22 PT-OP-B Current Condition Start: 04/15/18 13:17 Freq: Status: Active Protocol: Document 04/15/18 13:20 EA (Rec: 04/15/18 13:42 EA [id number]) Current Condition History of Current Condition Onset Date 5 years ago Current Complaints Left hip pain with stiffness History of Current Condition Present condition started 5 year ago which has been treated 1 year ago with good results but not fully recovered. Pt reports that he does not want to undergo surgery though he was diagnosed with hip OA few years ago; states c/c is difficulty with tieng shoes in seated position and difficulty of getting up from the floor when kneeling as he feels joint stiffness always stopped him. Patient denies hip injury in the past or hip rsurgery. Patient went to his doctor weeks ago and was then referred to PT for further evaluation. Radiographs taken months ago which according to patient that the left hip joint has significant OA. Prior Treatments and Tests Formal PT year ago with same condition Chiropractor ongoing for back problem Future Testing and Treatments Planned None at this time. Treatment Goals Patient/Caregiver Goals 1. be able to bend and tie shoe laces and put the sucks 2. decrease left hip discomfort and stiffness Prior Functional Status Baseline Function- ADL's Independent Baseline Function- Mobility Independent Baseline Function- Recreation/Hobbies Fishing, crabbing, camping with mild difficulty Current Functional Impairments (Reported) Functional Limitations- ADL's Limitation with bending and left foot shoe donning Functional Limitations- Mobility/Gait Indep with no mobility support with moderate limp. Functional Limitations- Recreation/ Fishing, crabbing, camping Hobbies with mild difficulty Personal Factors Other Personal Factors That May Effect Chronicity of the condition Therapy/Recovery PT-OP-C Subjective Start: 04/15/18 13:17 Freq: Status: Active Protocol: Document 09/23/18 12:54 EA (Rec: 09/23/18 13:00 EA [id number]) OP-PT Subjective Patient Comments Patient Comments Pt reports he would be away for more than a month and would like to discharge from PT; he would also make consult to his physician for further hip concerns. Pt states he would like to know more exercises that he can perform at home he can do while away. Pt reports that he feels he is much improved with functional mobility. Patient Reported Progress Improving PT-OP-F Manual Assessment Start: 04/15/18 13:17 Freq: Status: Active Protocol: Document 09/17/18 11:04 EA (Rec: 09/17/18 11:06 EA [id number]) Manual Assessments Soft Tissue Assessment Soft Tissue Mobility Assessment Hypomobile left hip joint Tightness to both hamstring and anterior hip muscles PT-OP-G Mobility & Gait Start: 04/15/18 13:17 Freq: Status: Active Protocol: Document 04/15/18 13:20 EA (Rec: 04/15/18 13:42 EA [id number]) OP Gait Assessment Gait Deviations General Gait Pattern Antalgic Stair Climbing Evaluation Comments Stair Climbing Comments Decrease left foot stance time . PT-OP-J Posture/Palpation/Skin Start: 04/15/18 13:17 Freq: Status: Active Protocol: Document 06/12/18 09:30 EA (Rec: 06/12/18 09:46 EA [id number]) Palpation Assessment Location One Palpation Location Right ant hip and upper gluteals Palpation Findings Soft Tissue Tightness Tenderness PT-OP-K Range of Motion Start: 04/15/18 13:17 Freq: Status: Active Protocol: Document 09/15/18 11:06 EA (Rec: 09/17/18 11:07 EA [id number]) Hip Goniometric Range of Motion Hip Measured in Degrees Left Active Testing Position Supine Flexion w/Knee Flexed 100 Extension 10 Abduction 25 Internal Rotation 25 External Rotation 20 Right Active Flexion w/Knee Flexed 110 Extension 10 Abduction 25 Internal Rotation 32 External Rotation 40 PT-OP-L Special Tests Start: 04/15/18 13:17 Freq: Status: Active Protocol: Document 09/17/18 11:04 EA (Rec: 09/17/18 11:06 EA [id number]) Special Tests Hip Special Tests Piriformis Test Results - Scour Test Test Results NOT SENSITIVE Lisa's Test Test Results + PAKO Test Results + PT-OP-M Strength Start: 04/15/18 13:17 Freq: Status: Active Protocol: Document 09/03/18 16:09 EA (Rec: 09/03/18 16:10 EA [id number]) Hip Strength Hip Manual Muscle Testing Left Flexion (L2) 5 Normal Extension (S1) 5 Normal Abduction 4 Good External Rotation 4+ Good+ Internal Rotation 4 Good Right Flexion (L2) 5 Normal Extension (S1) 5 Normal Abduction 5 Normal Adduction 5 Normal External Rotation 4+ Good+ Internal Rotation 4 Good PT-OP-Q Treatments Start: 04/15/18 13:17 Freq: Status: Active Protocol: Document 09/23/18 12:54 EA (Rec: 09/23/18 13:00 EA [id number]) Therapeutic Exercises Supine Exercises 5 Supine Exercise Name edge table rectus femoris stretch Side bilateral Comments HEP comp 4 Supine Exercise Name SLR Side bilateral Resistance 5lbs Reps/Minutes x 15 reps Comments HEP comp 3 Supine Exercise Name hip abd/add AROM Side left Resistance Lv2 Reps/Minutes x15 reps x 2 Comments HEP comp 2 Supine Exercise Name figure of 4 stretch Side left Reps/Minutes x30sh x 2 Comments HEP comp 1 Supine Exercise Name Hamstring/ hip rotators, IT band, hip flexorsstertch Side left Reps/Minutes x 30SH x 2 Comments HEP comp Prone Exercises 3 Prone Exercise Name Side bend stretch Reps/Minutes 30SH x 3 reps each side Comments HEP comp 2 Prone Exercise Name Child pose Reps/Minutes x 15 SH x 3 reps 1 Prone Exercise Name Camel and cat Reps/Minutes x 30 SH x 3 reps Sidelying Exercises 2 Sidelying Exercise Name Hip flexor stretch, ITB stretch Reps/Minutes x 30SH x 3 reps Comments HEP comp Sitting Exercises 1 Sitting Exercise Name low back fwd bending stretch. with knee bent and straight Side bilateral Reps/Minutes x 30sh x 3 reps Comments add rotation: passive Standing Exercises 3 Standing Exercise Name FWD lunge with hand support Side bilateral Reps/Minutes x 15 reps Comments HEP comp 2 Standing Exercise Name SLS Side left Reps/Minutes x10 SH x 5 1 Standing Exercise Name SLS Reps/Minutes x 10SH x 3 reps each leg Comments ball pass Other Exercises 3 Other Exercise Name Stairs single step foot reaching Reps/Minutes x 5 reps x 15SH 2 Other Exercise Name Steps hamstring and calf stretch Reps/Minutes x 15SH x 2 reps 1 Other Exercise Name Half kneeling stretch Side bilateral Comments Rails to hol and foam to knee Self-Care/Home Management Treatment Education Patient Education Home Exercise Program Joint Protection PT-OP-R Modalities Start: 04/15/18 13:17 Freq: Status: Active Protocol: Document 08/26/18 15:15 EA (Rec: 08/26/18 15:16 EA [id number]) Hot Pack/Cold Pack Treatment Hot Pack Location left low back,hip ER Patient Position Sidelying Treatment Duration (minutes) 15 Patient Tolerance Good PT-OP-T Assessment and Plan Start: 04/15/18 13:17 Freq: Status: Active Protocol: Document 09/23/18 15:58 EA (Rec: 09/23/18 16:00 EA [id number]) Physical Therapy Assessment Assessment Summary Assessment Pt is discharge today due to patient request and progress plateau. Patient demonstrates improved functional mobility at the time of discharged. Patient has educated with HEP. Physical Therapy Plan Discharge Physical Therapy Discharge Reasons Patient Request Discharge Comments Progress plateau
== END 2018-09-23 10:00 ==
LOC: PHYS 09:00
PROVIDERS: Family Provider Family Medicine; PCP Family Medicine; Visit Provider Family Medicine
DX: M25.552 Pain in left hip (principal)
CPT/HCPCS: 97014; 97110; 97140; 97161; 97535; G0283